=== PATIENT | female | born 1955 | race Caucasian/White ===

== ENCOUNTER 2016-11-21 09:33 | Day surgery (SDC) | payer OTHER ==
[~2016-11-21] VITALS: Ht 134.6 cm; Wt 40.8 kg
[2016-11-21 10:33] VITALS: Ht 134.6 cm; Wt 40.8 kg
[2016-11-21] MEDS ORDERED: ALENDRONATE SODIUM PO (10:50)
[2016-11-21] MEDS ORDERED: ENAL20TA PO (10:50)
[2016-11-21] MEDS ORDERED: ATOR20TA65 PO (10:50)
[2016-11-21] MEDS ORDERED: ACETAMINOPHEN (10:50)
[2016-11-21] MEDS ORDERED: OMEPRAZOLE (10:50)
[2016-11-21] MEDS ORDERED: HYDR12.58 PO (10:50)
[2016-11-21] MEDS ORDERED: CALCIUM PO (10:50)
[2016-11-21 11:16] VITALS: BP 141/83; PULSE 96; RESP 15
[2016-11-21] MEDS ORDERED: MIDAZOLAM 1 MG/ML 2 ML INJ ONE ×3 (11:58)
[2016-11-21] MEDS ORDERED: FENTAnyl 50 MCG/ML VIAL ONE (11:58)
--- NOTE | 2016-11-21 12:04 | GILP ---
DATE OF PROCEDURE: 11/21/2016 PROCEDURE: Esophagogastroduodenoscopy. SURGEON: Gilbert Ferguson MD PREOPERATIVE DIAGNOSIS: A patient presenting with history of chronic heartburn, abdominal discomfor t, dyspepsia. Rule out peptic ulcer disease, gastritis, esophagitis. POSTOPERATIVE DIAGNOSES: 1. Esophagus appeared normal. 2. Erosions were noted in the gastric fundus. 3. Small fundic glands were noted. 4. Patchy gastritis. DESCRIPTION OF PROCEDURE: After the informed written consent was obtained, the patient was asked to lie on the left lateral side. Intravenous anesthesia was given which included 3 mg Versed and 75 m cg of fentanyl. When the patient became somnolent, the Olympus video upper endoscope was introduced into the oropharynx, then into the esophagus. Esophagus appeared to show normal mucosal pattern wi th no esophagitis. Scope at this time was advanced into the stomach. Several areas of erosions wer e noted in the gastric fundus. Several areas of patchy erythema was noted in the gastric mucosa. T wo fundic glands were noted in the mid body of the stomach. Biopsy was done from the antrum, the le sser curvature and the fundus to rule out H. pylori infection. At this time, scope was advanced int o the duodenum. Entire duodenum appeared normal with no mucosal abnormalities. Scope at this time was withdrawn and the procedure was terminated. PLAN: Recommend proton pump inhibitor therapy. Dictated By: GILBERT EDWARDS/YULY Conf#: [id number] DID#: [id number] CC: GILBERT FERGUSON MD; LINH UREÑA MD;*[facility]*
--- NOTE | 2016-11-21 12:10 | GILP ---
DATE OF PROCEDURE: 11/21/2016 PROCEDURE: Colonoscopy. PREOPERATIVE DIAGNOSIS: Rectal bleeding, rule out colorectal neoplasm, arteriovenous malformation, hemorrhoids. POSTOPERATIVE DIAGNOSES: Minimal external hemorrhoids. DESCRIPTION OF PROCEDURE: After informed written consent was obtained, the patient was given 5 mg V ersed and 100 mcg of fentanyl as intravenous anesthesia. When the patient became somnolent, the Olympus video colonoscope was introduced into the rectum and scope was advanced all the way to the cecum. Entire colon appeared perfectly normal with no mucosal abnormality. Endoscope at this time was withdrawn from the cecum. On the way out, the above findi ngs were confirmed. No neoplasm, no colitis were noted. Retroflexion showed no internal hemorrhoid s and when the scope was withdrawn, minimal external hemorrhoids were noted and the procedure was te rminated. PLAN: Recommend Anusol-HC suppositories 1 into the rectum twice a day if the bleeding were to occur . Dictated By: MUKUL CAMARGO MD NC/NTS Conf#: [id number] DID#: [id number] CC: MUKUL CAMARGO MD; Jairo Porras MD;*End*
[2016-11-21 12:30] VITALS: BP 108/58; PULSE 94; RESP 18
== END 2016-11-21 15:39 | disposition home or self-care (01) ==
LOC: GIL 09:33
PROVIDERS: ATTEND Internal Medicine Gastroenterology
DX: K29.30 Chronic superficial gastritis without bleeding (principal); K64.4 Residual hemorrhoidal skin tags; I10 Essential (primary) hypertension
CPT/HCPCS: 43239; 45378; 88305; 88312; J2250; J3010; Z7610

== ENCOUNTER 2017-01-02 16:33 | Emergency (ER) | payer OTHER ==
[~2017-01-02] VITALS: Ht 157.5 cm; Wt 53.0 kg
[~2017-01-02 16:33] MED LIST: ACETAMINOPHEN; ALENDRONATE SODIUM PO; ATOR20TA65 PO; CALCIUM PO; ENAL20TA PO; HYDR12.58 PO; OMEPRAZOLE
[2017-01-02 16:40] VITALS: Ht 157.5 cm; Wt 53.0 kg
--- NOTE | 2017-01-02 18:08 | RADRPT ---
PROCEDURE: XR Right Foot. CLINICAL INDICATION: Trauma. Right foot pain. TECHNIQUE: Three views. Frontal, lateral, and oblique. COMPARISON: None. FINDINGS: There is no fracture or dislocation. The soft tissues are normal. There is a mild hallux valgus. The articular surfaces are intact. There is no lytic or blastic lesion. There is no radiopaque foreign body. IMPRESSION: 1. Mild hallux valgus. 2. Otherwise unremarkable images of the right foot. RPTAT: QQ .Artemio Kirk MD, MD Date Time Electronically viewed and signed by .Artemio Kirk MD, MD on 01/02/2017 18:08 .R/
[2017-01-02] MEDS ORDERED: ACET325T33 PO (18:17)
[2017-01-02 19:00] VITALS: BP 141/76; PULSE 76; RESP 16; TEMP 98.7
--- NOTE | 2017-01-02 23:46 | ERD ---
ER Documentation Chief Complaint Date/Time DATE: 01/02/17 TIME: 23:43 Chief Complaint RIGHT FOOT/TOES PAIN HPI This is a 61-year-old female presenting to the emergency department complaining of right second digit toe pain status post inversion mechanism injury that occurred 3 days ago while she was gardening. Patient states that the pain is moderate in severity. She states that she has an appointment to see her primary care physician tomorrow and would like to get an x-ray to bring to her. Patient states she took Tylenol at 7 PM without much relief. She admits to having restricted range of motion ROS All systems reviewed and are negative except as per history of present illness. Medications Home Meds Active Scripts Acetaminophen* (Tylenol*) 325 Mg Tablet, 2 TAB PO Q6 Y for PAIN AND OR ELEVATED TEMP, #30 TAB Prov:PAM LU PA-C 01/02/17 Reported Medications [Calcium] No Conflict Check, 400 MG PO 11/21/16 Atorvastatin Calcium (Atorvastatin Calcium) 20 Mg Tablet, 20 MG PO QHS, #30 TAB 11/21/16 [Alendronate Sodium] No Conflict Check, 70 MG PO 11/21/16 Enalapril Maleate* (Enalapril Maleate*) 20 Mg Tablet, 20 MG PO DAILY, TAB 11/21/16 Hydrochlorothiazide* (Hydrochlorothiazide*) 12.5 Mg Tablet, 12.5 MG PO DAILY, # 30 TAB 11/21/16 [Acetaminophen] No Conflict Check, 500 MG 11/21/16 [Omeprazole] No Conflict Check 11/21/16 Allergies Allergies: Coded Allergies: No Known Allergy (Unverified , 01/02/17) PMhx/Soc History of Surgery: Yes (EAR SURGERY, LEFTKNEE SURGERY, APPENDECTOMY) Anesthesia Reaction: No Hx Neurological Disorder: No Hx Respiratory Disorders: Yes (BRONCHITIS) Hx Cardiac Disorders: Yes (HYPERTENSION) Hx Psychiatric Problems: No Hx Miscellaneous Medical Probl: Yes (HYPERLIPIDEMIA) Hx Alcohol Use: No Hx Substance Use: No Hx Tobacco Use: No Smoking Status: Never smoker Physical Exam Vitals Vital Signs Date Time Temp Pulse Resp B/P Pulse Ox O2 Delivery O2 Flow Rate FiO2 01/02/17 19:00 98.7 76 16 141/76 100 Room Air 01/02/17 16:40 98.1 95 20 156/77 99 Physical Exam General: WD/WN, in no apparent distress, non-toxic appearing HENT: NC/AT Eyes: Conjunctiva normal Neck: Supple Pulm: Clear to auscultation, normal labored breathing; no wheezing/rales/ rhonchi heard CV: Good capillary refill GI: Non-distended, no guarding Back: No masses Ext: 2nd toe tenderness, no pain in right foot, ankle Neuro: Moves on all fours Skin: intact Psych: Normal mood Procedures/MDM This is a 61-year-old female presenting to the emergency department complaining of right second digit toe pain status post inversion mechanism injury that occurred 3 days ago while she was gardening. This is likely contusion and sprain. No evidence of a fracture dislocation due to physical examination and diagnostic testing. X-rays did not show any evidence of fracture desiccation. She states that she has an appointment to see her primary care physician tomorrow and will bring the diagnostic testing to her physician. Patient is neurovascular intact and her stable for discharge for home with precautions to return to the ER for any worsening symptoms. She understands and agrees with this plan Departure Diagnosis: Primary Impression: Foot pain Condition: Stable Patient Instructions: Sprain Foot Referrals: [facility] (PCP) Additional Instructions: Visite a lacy hartman para un EXAMEN.Regrese a estas instalaciones si no se mejora gabe esperbamos o gabe le dijimos. [place] toda la medicina sabrina y gabe se le indic. Regrese a estas instalaciones si no se mejora gabe esperbamos o gabe le dijimos. PAM LU PA-C January 02, 2017 23:46
== END 2017-01-02 19:01 | disposition home or self-care (01) ==
LOC: FTE 16:33
DX: M79.674 Pain in right toe(s) (principal); I10 Essential (primary) hypertension
CPT/HCPCS: 73630; Z7502

== ENCOUNTER 2018-10-10 06:57 | Inpatient (IN) | payer OTHER ==
[2018-10-10] VITALS (24 sets, daily range): BP systolic 92–178; BP diastolic 48–95; PULSE 86–133; RESP 11–22; Ht 134.6 cm; Wt 43.3 kg
[~2018-10-10] VITALS: Ht 134.6 cm; Wt 43.3 kg
[~2018-10-10 06:57] MED LIST changes: +ACET325T33 PO
[2018-10-10] MEDS ORDERED: CEFAZOLIN 1 GM INJ ONE (07:00)
[2018-10-10] MEDS ORDERED: EPHEDrine SULFATE 50 MG/5 ML SYG ONE (07:00)
[2018-10-10] MEDS ORDERED: SEVOFLURANE 15 MIN ONE (07:00)
[2018-10-10] MEDS ORDERED: PROPOFOL 200 MG INJ ONE (07:00)
[2018-10-10] MEDS ORDERED: BUPIVACAINE 0.5%/EPI (SDV) 30 ML INJ ONE (07:34)
--- NOTE | 2018-10-10 07:46 | PREAC ---
Date/Time of Note Date/Time of Note DATE: 10/10/18 TIME: 07:44 Anesthesia Eval and Record Evaluation Time Pre-Procedure Interview DATE: 10/10/18 TIME: 07:44 Age 63 Sex female NPO: 8 hrs Preoperative diagnosis Lt knee pain Planned procedure Lt knee patella hardware removal Past Medical History Past Medical History: Includes Cardio: HTN, Dyslipidemia GI: GERD Surgery & Anesthesia Issues No known issue Meds Anticoagulation: No Beta John within 24 hr: No Reason Beta John not given: Pt. not on B-John Active Scripts Acetaminophen* (Tylenol*) 325 Mg Tablet, 2 TAB PO Q6 PRN for PAIN AND OR ELEVATED TEMP, #30 TAB Prov:PAM LU PA-C 01/02/17 Reported Medications [Calcium] No Conflict Check, 400 MG PO 11/21/16 Atorvastatin Calcium (Atorvastatin Calcium) 20 Mg Tablet, 20 MG PO QHS, #30 TAB 11/21/16 [Alendronate Sodium] No Conflict Check, 70 MG PO 11/21/16 Enalapril Maleate* (Enalapril Maleate*) 20 Mg Tablet, 20 MG PO DAILY, TAB 11/21/16 Hydrochlorothiazide* (Hydrochlorothiazide*) 12.5 Mg Tablet, 12.5 MG PO DAILY, #30 TAB 11/21/16 [Acetaminophen] No Conflict Check, 500 MG 11/21/16 [Omeprazole] No Conflict Check 11/21/16 Meds reviewed: Yes Allergies Coded Allergies: No Known Allergy (Unverified , 10/10/18) Allergies Reviewed: Yes Labs/Studies Labs Reviewed: Reviewed by anesthesiologist test: Negative Pre-procedure Exam Last vitals Vital Signs Date Temp Pulse Resp B/P (MAP) Pulse Ox O2 O2 Flow FiO2 Time Delivery Rate 10/10/18 98.2 86 18 131/71 100 Room Air 07:14 (91) Airway: Adequate mouth opening, Adequate thyromental dist Mallampati: Mallampati II Teeth: Normal Lung: Normal Heart: Normal ASA Physical Status ASA physical status: 2 Emergency: None Planned Anesthetic General/MAC: LMA Pre-operative Attestations Prior to commencing anesthesia and surgery, the patient was re-evaluated, there was verification of: *The patient's identity *The results of appropriate recent lab work and preoperative vital signs *The above evaluation not changing prior to induction *Anesthetic plan, risk benefits, alternative and complications discussed with patient/family; questions answered; patient/family understands, accepts and wishes to proceed. FLIP LAMB CRNA Oct 10, 2018 07:46
[2018-10-10] MEDS ORDERED: ETOMIDATE 20 MG INJ ONE (07:52)
[2018-10-10] MEDS ORDERED: LIDOCAINE 2% (SDV) 5 ML INJ ONE (07:52)
[2018-10-10] MEDS ORDERED: FENTAnyl 50 MCG/ML VIAL ONE (07:52)
[2018-10-10] MEDS ORDERED: DEXAMETHASONE 4 MG/ML 5 ML INJ ONE (07:53)
[2018-10-10] MEDS ORDERED: PHENYLephrine 10 MG INJ ONE (07:53)
[2018-10-10] MEDS ORDERED: ONDANSETRON 4 MG INJ ONE (08:05)
[2018-10-10] MEDS ORDERED: ONDANSETRON 4 MG INJ IV PRN ×2 (08:30→16:00)
[2018-10-10] MEDS ORDERED: FENTAnyl 50 MCG/ML VIAL IV PRN (08:30)
--- NOTE | 2018-10-10 08:36 | HPN ---
Date/Time of Note Date/Time of Note DATE: 10/10/18 TIME: 08:36 Interval H&P Admission Note Pt. seen H&P reviewed: No system changes KIMBERLY SKAGGS MD Oct 10, 2018 08:36
[2018-10-10] MEDS ORDERED: ROPIVACAINE 0.2% 20 ML VIAL ONE (09:13)
[2018-10-10] MEDS ORDERED: HYDROmorphONE 2 MG/ML SYG ONE (09:15)
[2018-10-10] MEDS ORDERED: POTASSIUM CHLORIDE (SR) 20 MEQ TAB PO STA (12:32)
--- NOTE | 2018-10-10 12:51 | OPPN ---
Date/Time of Note Date/Time of Note DATE: 10/10/18 TIME: 12:46 Event Note 15 min after pt was transferred to same day surgey after recovery in PACU, they called stoke code on her. when i got there in minute pt was awake alert oriented, vital sign stable only HR 105. I was told pt was tachy and complain of numbness in hands, ER doc arrived shortly and examination was nl, good strenght, no sensory deficit, reaction to needle touch and alcoho swab. pt had an anxiety reaction to last anesthesia. Lab ordered, which is nl only Lactae ascid , pt is admitted for overnight observation GER VILLARREAL MD Oct 10, 2018 12:51
--- NOTE | 2018-10-10 13:14 | OPR ---
DATE OF OPERATION: 10/10/2018 PREOPERATIVE DIAGNOSIS: Left knee patellar fracture with retained hardware. POSTOPERATIVE DIAGNOSIS: Left knee patellar fracture with retained hardware. OPERATION PERFORMED: Left knee removal of hardware. SURGEON: Kimberly Skaggs MD EDUCATIONAL SPEECH LANGUAGE CLINICIAN: None. ANESTHESIA: General endotracheal anesthesia with local anesthetic. ESTIMATED BLOOD LOSS: Minimal. INDICATIONS FOR PROCEDURE: Ms. Leias Thompson is a 63-year-old female who previously had a patellar fr acture repair with a cerclage wire. She says the wire has now become prominent and has been irritati ng her seizure, presents for removal of the wire. Risks and benefits were discussed. Informed conse nt was obtained. DESCRIPTION OF PROCEDURE: The patient's correct extremity was identified in the preoperative area. She was brought back to the operating room where she had general endotracheal anesthesia. The left l ower extremity was prepped and draped in the standard sterile manner. Preop antibiotics were adminis tered. Timeout was performed. I then made a small incision overlying the patella. I did subcutaneo us dissection was able to find the area where the wire was cerclaged. I then cut the wire and then e asily removed it. X-rays confirmed that all the metal was removed. I then turned my attention to cl osure, obtained adequate hemostasis, the wound was closed with the skin being closed with 3-0 Mon[place] l. Dry sterile dressing was applied. The patient was extubated and transported to recovery in sta e condition. Dictated By: KIMBERLY SKAGGS MD, RA/YULY Conf#: [id number] DID#: [id number]
--- NOTE | 2018-10-10 14:19 | PAC ---
Date/Time of Note Date/Time of Note DATE: 10/10/18 TIME: 14:18 Post-Anesthesia Notes Post-Anesthesia Note Last documented vital signs Vital Signs Date Temp Pulse Resp B/P (MAP) Pulse Ox O2 O2 Flow FiO2 Time Delivery Rate 10/10/18 98.0 100 15 154/71 100 12:44 10/10/18 14 165/73 100 Room Air 12:15 (103) 10/10/18 98.0 11:23 Activity: WNL Respiratory function: WNL Cardiovascular function: WNL Mental status: Baseline Pain reasonably controlled: Yes Hydration appropriate: Yes Nausea/Vomiting absent: No GER VILLARREAL MD Oct 10, 2018 14:19
[2018-10-10] MEDS: SOD CHLORIDE 0.9% 1,000 ML IV SCH ×2 (15:05→23:50)
[2018-10-10] MEDS: CEFTRIAXONE 1 GM/50 ML (PMX) 50 ML IVPB SCH (15:06)
[2018-10-10] MEDS ORDERED: ENALAPRIL 20 MG TAB PO SCH (16:00)
[2018-10-10] MEDS: HYDROCHLOROTHIAZIDE 12.5 MG CAP PO SCH (16:15)
[2018-10-10] MEDS ORDERED: ONDANSETRON 4 MG INJ IV STA (17:00)
[2018-10-10] MEDS ORDERED: METOCLOPRAMIDE 10 MG INJ IV PRN (17:00)
[2018-10-10] MEDS: PANTOPRAZOLE 40 MG INJ IV SCH (17:35)
[2018-10-10] MEDS ORDERED: hydrALAzine 20 MG INJ IV PRN (18:00)
--- NOTE | 2018-10-10 23:53 | HP ---
DATE OF ADMISSION: 10/10/2018 CHIEF COMPLAINT AND HISTORY OF PRESENT ILLNESS: History is obtained from medical record and also fro m patient. Charlene GARVIN on the 6th floor helped mainly in interpretation. The patient is a 63-year-old female with a history of hypertension who sustained a fall leading to left patellar fracture. The p atient had a repair with a wire. The patient was being followed by Dr. Hatfield as an outpatient an d because of discomfort from the wire becoming superficial and irritating her skin, the patient was a dmitted for removal of retained hardware. The patient postoperatively developed multiple episodes of vomiting and also had tachycardia. The patient's lactic acid level was 3.7, which I repeated after 6 hours and still 2.3. The patient was empirically started on IV Rocephin after sending UA and C and S. The patient remains awake and alert and did not have any chest pain or shortness of breath. The patient did not have any abdominal pain. The patient did have nausea and had multiple episodes of v omiting. The patient did not have any headache, no reported dizziness, no report of any focal weakne ss. The patient, prior to elective surgery, did not have any systemic symptom of infection and was i n her usual state of health. The patient does not have any leg edema. No previous history of claudi cation. No hematemesis. No reported melena since admission. The patient is being admitted for furt her evaluation and management. PAST MEDICAL HISTORY: As stated above. ALLERGIES: NONE. SOCIAL HISTORY: No smoking or alcohol. FAMILY HISTORY: Noncontributory. MEDICATIONS PRIOR TO ADMISSION: Vasotec and hydrochlorothiazide. PHYSICAL EXAMINATION: GENERAL: The patient is awake, alert, and fairly oriented. VITAL SIGNS: At the time of my examination, temperature 98, pulse 104, respirations 20, blood pressu re 166/81, O2 saturation 97% on room air. HEENT: No eye discharge or redness. Conjunctivae are normal. Oropharynx clear. NECK: Supple, no mass, no thyromegaly. CHEST: Fairly clear. No use of accessory muscles. CARDIOVASCULAR: S1, S2 normal. Sinus tachycardia. ABDOMEN: Soft, nontender. Bowel sounds plus. EXTREMITIES: No ankle edema. Pedal pulses palpable. Chris wrap present on the left knee. NEUROLOGIC: The patient is awake, alert, and fairly oriented with no obvious gross focal deficit, al though exam was limited on the left lower extremity due to recent surgery. LABORATORY DATA: This morning, WBC 10.8. Repeat lab: WBC went up to 12.8, hemoglobin 11.8, platele t 344. Sodium 136, potassium 3.8, BUN 12, creatinine 0.5, glucose 175. The lactate has been declini ng. In the morning, it was 3.7. Now, it is down to 2.3. IMPRESSION AND PLAN: Sepsis, unknown etiology. Urine culture and blood culture have been ordered. We will also obtain chest x-ray, echocardiogram, and serial troponin. We will use SCD for DVT prophy laxis. The patient does not have any chest pain, shortness of breath, or hypoxemia. We will also st art her on IV Protonix and symptomatic treatment for nausea and vomiting. The patient will be monito red on telemetry. We will repeat CBC, CMP, and lactic acid level in the morning. Further recommenda tion will depend on patient's hospital course. Meanwhile, the patient will also be started on IV flu ids. We will obtain infectious disease consult from Dr. Dominguez's group. Further recommendation will depend on patient's hospital course. Dictated By: MEDINA NICOLE MD AB/NTS Conf#: [id number] DID#: [id number] CC: KIMBERLY HATFIELD MD;*End*
[2018-10-11] VITALS (9 sets, daily range): BP systolic 97–138; BP diastolic 53–71; PULSE 83–115; RESP 17–19
[2018-10-11] MEDS: HYDROCHLOROTHIAZIDE 12.5 MG CAP PO SCH (06:00)
[2018-10-11] MEDS: PANTOPRAZOLE 40 MG INJ IV SCH (06:12)
[2018-10-11] MEDS ORDERED: IOHEXOL 100 ML ONE (08:24)
[2018-10-11] MEDS ORDERED: SOD CHLORIDE 0.9% 100 ML ONE (08:24)
[2018-10-11] MEDS ORDERED: ENOXAPARIN 40 MG/0.4 ML SYG SC ONE (09:00)
[2018-10-11] MEDS: ASPIRIN (EC) 325 MG TAB PO SCH (09:03)
[2018-10-11] MEDS: SOD CHLORIDE 0.9% 1,000 ML IV SCH (09:20)
[2018-10-11] MEDS: NS + KCL 20 MEQ 1,000 ML IV SCH (12:14)
[2018-10-11] MEDS: CEFTRIAXONE 1 GM/50 ML (PMX) 50 ML IVPB SCH (13:22)
--- NOTE | 2018-10-11 13:45 | PN ---
Date/Time of Note Date/Time of Note DATE: 10/11/18 TIME: 13:42 Assessment/Plan Lines/Catheters IV Catheter Type (from Nrs): Peripheral IV Bustos in Place (from Nrsg): No Assessment/Plan Assessment/Plan s/p Left Patella Hardware Removal Has postop elevated troponins, awaiting input from cardiology Presently she is pain free in her knee,wound looks really good Elevated WBC, ? post op leukocytosis Encourage ambulation Subjective 24 Hr Interval Summary No complaints. Ambulated earlier today. Exam/Review of Systems Vital Signs Vitals Vital Signs Date Temp Pulse Resp B/P (MAP) Pulse Ox O2 O2 Flow FiO2 Time Delivery Rate 10/11/18 115 13:06 10/11/18 98.8 17 124/66 99 11:30 (85) 10/11/18 Room Air 04:00 Intake and Output 10/10/18 10/10/18 10/11/18 1515:00 23:00 07:00 IntakeIntake Total 1100 ml 1110 ml 600 ml OutputOutput Total 2 ml BalanceBalance 1098 ml 1110 ml 600 ml Exam Free Text/Dictation Left LE: Inc c/d/i No erythema Calf soft and nontender Results Result Diagram: 10/11/18 0531 10/11/18 1101 KIMBERLY SKAGGS MD Oct 11, 2018 13:45
--- NOTE | 2018-10-11 14:37 | CONS ---
Consultation Date/Type/Reason Admit Date/Time Oct 10, 2018 at 13:06 Type of Consult Cardiology Date/Time of Note DATE: 10/11/18 TIME: 14:35 Hx of Present Illness ^$ yo with post op elevated troponis - etiology unclear, not consistent with ACS - pain free - will add BB, follow CK-MD/troponin - if stable, consider outpt stress test. Past Medical History Home Meds Active Scripts Acetaminophen* (Tylenol*) 325 Mg Tablet, 2 TAB PO Q6 PRN for PAIN AND OR ELEVATED TEMP, #30 TAB Prov:PAM LU PA-C 01/02/17 Reported Medications [Calcium] No Conflict Check, 400 MG PO 11/21/16 Atorvastatin Calcium (Atorvastatin Calcium) 20 Mg Tablet, 20 MG PO QHS, #30 TAB 11/21/16 [Alendronate Sodium] No Conflict Check, 70 MG PO 11/21/16 Enalapril Maleate* (Enalapril Maleate*) 20 Mg Tablet, 20 MG PO DAILY, TAB 11/21/16 Hydrochlorothiazide* (Hydrochlorothiazide*) 12.5 Mg Tablet, 12.5 MG PO DAILY, #30 TAB 11/21/16 [Acetaminophen] No Conflict Check, 500 MG 11/21/16 [Omeprazole] No Conflict Check 11/21/16 Medications Current Medications Ceftriaxone Sodium 50 ml @ 100 mls/hr Q24H IVPB Last administered on 10/11/18at 13:22; Admin Dose 100 MLS/HR; Start 10/10/18 at 13:30 Ondansetron HCl (Zofran Inj) 4 mg Q4H PRN IV NAUSEA AND/OR VOMITING Last administered on 10/10/18at 16:16; Admin Dose 4 MG; Start 10/10/18 at 16:00 Metoclopramide HCl (Reglan) 10 mg Q6H PRN IV VOMITTING; Start 10/10/18 at 17:00 Pantoprazole (Protonix Iv) 40 mg BID@06,18 IV Last administered on 10/11/18at 06:12; Admin Dose 40 MG; Start 10/10/18 at 18:00 Hydralazine HCl (Apresoline) 20 mg Q4H PRN IV high blood pressure Last administered on 10/10/18at 17:48; Admin Dose 20 MG; Start 10/10/18 at 18:00 Aspirin (Ecotrin) 325 mg DAILY PO Last administered on 10/11/18at 09:03; Admin Dose 325 MG; Start 10/11/18 at 09:00 Potassium Chloride/Sodium Chloride 1,000 ml @ 75 mls/hr [id number] IV Last administered on 10/11/18at 12:14; Admin Dose 75 MLS/HR; Start 10/11/18 at 11:00 Docusate Sodium (Colace) 200 mg BID PO ; Start 10/11/18 at 21:00 Allergies: Coded Allergies: No Known Allergy (Unverified , 10/10/18) Social History Smoking Status: Never smoker Exam/Review of Systems Vital Signs Vitals Vital Signs Date Temp Pulse Resp B/P (MAP) Pulse Ox O2 O2 Flow FiO2 Time Delivery Rate 10/11/18 115 13:06 10/11/18 98.8 17 124/66 99 11:30 (85) 10/11/18 Room Air 04:00 Intake and Output 10/10/18 10/10/18 10/11/18 1515:00 23:00 07:00 IntakeIntake Total 1100 ml 1110 ml 600 ml OutputOutput Total 2 ml BalanceBalance 1098 ml 1110 ml 600 ml Labs Result Diagram: 10/11/18 0531 10/11/18 1101 Results 24hrs Laboratory Tests Test 10/10/18 16:49 10/10/18 19:30 10/11/18 00:40 10/11/18 05:31 Lactic Acid Level 3.0 *H 2.3 *H 1.1 White Blood Count 12.8 H 14.7 H Red Blood Count 4.54 4.06 L Hemoglobin 11.8 L 10.6 L Hematocrit 37.2 33.3 L Mean Corpuscular 81.9 L 82.0 Volume Mean Corpuscular 26.0 L 26.1 L Hemoglobin Mean Corpuscular 31.7 L 31.8 L Hemoglobin Concent Red Cell 13.2 13.5 Distribution Width Platelet Count 344 295 Mean Platelet Volume 10.2 10.2 Immature 0.600 H 0.400 Granulocytes % Neutrophils % 94.5 H 80.7 H Lymphocytes % 3.8 L 10.6 L Monocytes % 0.9 8.2 Eosinophils % 0.0 0.0 Basophils % 0.2 0.1 Nucleated Red Blood 0.0 0.0 Cells % Immature 0.080 H 0.060 H Granulocytes # Neutrophils # 12.1 H 11.9 H Lymphocytes # 0.5 L 1.6 Monocytes # 0.1 L 1.2 H Eosinophils # 0.0 0.0 Basophils # 0.0 0.0 Nucleated Red Blood 0.0 0.0 Cells # Sodium Level 136 Potassium Level 3.8 Chloride Level 105 Carbon Dioxide Level 21 Anion Gap 10 Blood Urea Nitrogen 12 Creatinine 0.51 Est Glomerular > 60 Filtrat Rate mL/min Glucose Level 175 Calcium Level 8.6 Troponin I < 0.012 0.176 *H 0.544 *H Thyroid Stimulating 0.278 L Hormone (TSH) Free Thyroxine 1.41 Test 10/11/18 09:00 10/11/18 10:59 10/11/18 11:01 10/11/18 13:25 Urine Color COLORLESS Urine Clarity CLEAR Urine pH 7.0 Urine Specific 1.003 [place] Urine Ketones NEGATIVE Urine Nitrite NEGATIVE Urine Bilirubin NEGATIVE Urine Urobilinogen NEGATIVE Urine Leukocyte NEGATIVE Esterase Urine Hemoglobin NEGATIVE Urine Glucose NEGATIVE Urine Total Protein NEGATIVE Troponin I 0.583 *H Sodium Level 140 Potassium Level 4.5 Chloride Level 110 Carbon Dioxide Level 24 Anion Gap 6 Blood Urea Nitrogen 12 Creatinine 0.69 Est Glomerular > 60 Filtrat Rate mL/min Glucose Level 97 # Calcium Level 8.4 Total Bilirubin 0.0 L Direct Bilirubin 0.00 Indirect Bilirubin 0.0 Aspartate Amino 33 Transf (AST/SGOT) Alanine 26 Aminotransferase (AL T/SGPT) Alkaline Phosphatase 48 Total Protein 6.4 Albumin 3.6 Globulin 2.80 Albumin/Globulin 1.28 Ratio D-Dimer 393.46 D-Dimer Comment Medications Medications Current Medications Ceftriaxone Sodium 50 ml @ 100 mls/hr Q24H IVPB Last administered on 10/11/18at 13:22; Admin Dose 100 MLS/HR; Start 10/10/18 at 13:30 Ondansetron HCl (Zofran Inj) 4 mg Q4H PRN IV NAUSEA AND/OR VOMITING Last administered on 10/10/18at 16:16; Admin Dose 4 MG; Start 10/10/18 at 16:00 Metoclopramide HCl (Reglan) 10 mg Q6H PRN IV VOMITTING; Start 10/10/18 at 17:00 Pantoprazole (Protonix Iv) 40 mg BID@06,18 IV Last administered on 10/11/18at 06:12; Admin Dose 40 MG; Start 10/10/18 at 18:00 Hydralazine HCl (Apresoline) 20 mg Q4H PRN IV high blood pressure Last administered on 10/10/18at 17:48; Admin Dose 20 MG; Start 10/10/18 at 18:00 Aspirin (Ecotrin) 325 mg DAILY PO Last administered on 10/11/18at 09:03; Admin Dose 325 MG; Start 10/11/18 at 09:00 Potassium Chloride/Sodium Chloride 1,000 ml @ 75 mls/hr [id number] IV Last administered on 10/11/18at 12:14; Admin Dose 75 MLS/HR; Start 10/11/18 at 11:00 Docusate Sodium (Colace) 200 mg BID PO ; Start 10/11/18 at 21:00 COLLIN HOWARD MD Oct 11, 2018 14:37
[2018-10-11] MEDS: DOCUSATE SODIUM 100 MG CAP PO SCH ×2 (15:58→22:30)
--- NOTE | 2018-10-11 16:11 | PN ---
DATE: 10/11/2018 SUBJECTIVE/INTERVAL HISTORY: Troponin came back positive, peaked at 0.5 early this morning and [facility] troponin is pending. Free T4 was normal. TSH was slightly low. The patient did not have any vo miting today. Denies any chest pain or shortness of breath. Tachycardia has improved. Last heart r ate is 101. The patient still has marginal blood pressure. No orthopnea. No abdominal pain. PHYSICAL EXAMINATION: GENERAL: The patient is awake, alert, fairly oriented. VITAL SIGNS: Temperature 98.6, pulse 101, respirations 17, blood pressure 110/55, O2 sat on room air HEENT: Unremarkable. NECK: No mass. CHEST: Fairly clear. CARDIOVASCULAR: S1, S2 normal. ABDOMEN: Soft, nontender, nondistended. EXTREMITIES: No ankle edema. Pedal pulses palpable. SKIN: Without acute rash. NEUROLOGIC: The patient is awake, alert, fairly oriented. LABORATORY DATA: Last troponin 0.54, lactic acid is down to 1.1. White count up today at 14.7. Chemistry pending. IMPRESSION: 1. Status post hardware removal from left patella, history of patellar fracture. Continue postop ca re as per Dr. Skaggs. 2. Sepsis, unclear etiology. Continue empiric IV Rocephin. Urine and blood cultures are pending. Chest x-ray did not reveal any infiltrate. ID consult from Dr. Murdock is pending. 3. Positive troponin, possible non-ST elevation myocardial infarction versus demand ischemia. The p atient was started on aspirin and was also given one therapeutic dose of Lovenox last night. I have requested Dr. Skaggs to give us okay for further use of Lovenox. The patient was also supposed to undergo CT pulmonary angiogram to rule out PE or aspiration pneumonia due to multiple vomiting in pe rioperative period. The patient, however, refused it. Will obtain venous Doppler and D-dimer. 4. History of hypertension. Will continue to hold Vasotec and hydrochlorothiazide due to marginal b lood pressure. Will also request lipid panel. Dictated By: MEDINA NICOLE MD AB/NTS Conf#: [id number] DID#: [id number] CC: KIMBERLY SKAGGS MD;*EndCC*
[2018-10-11] MEDS ORDERED: BISACODYL (EC) 5 MG TAB PO PRN (16:30)
[2018-10-11] MEDS: AL HYDROX/MG HYDROX/SIMETH 30 ML CUP PO PRN (17:40)
--- NOTE | 2018-10-11 19:29 | CONS ---
DATE OF ADMISSION: 10/10/2018 DATE OF CONSULTATION: 10/11/2018 REFERRING PHYSICIAN: Medina Nicole MD REASON FOR EVALUATION: Elevated troponins. HISTORY OF PRESENT ILLNESS: Ms. Thompson is a pleasant 63-year-old woman with history of hypertension, who presented for evaluation of left patellar fracture surgery. She has been followed by Dr. Rubio cerda as an outpatient and was admitted for elective surgery for hardware replacement. After the surge ry, the patient was feeling fine, but she became bacteremic for unclear cause according to the notes. Also, the patient had elevated troponins and I have been asked to see the patient in consultation. I reviewed the patient's data carefully. It appears that she does not have any known history of cor onary artery disease. To my evaluation, the patient was in sinus tachycardia at times. Her EKG show ed sinus rhythm with some nonspecific ST-T changes with inferior T-wave, but is nondiagnostic for acu te myocardial infarction. The patient's troponin, however, did come back elevated at 0.5. The etiol ogy is not completely clear. I do not have a CK-MB and CK total available. For now, she is chest pa in free. If her presentation is not really consistent with acute myocardial infarction, I think for now, conservative therapy is expected. The patient ought to be in consideration of an outpatient str ess test if system was urged. PAST MEDICAL HISTORY: 1. Hypertension. 2. History of knee derangement as described. 3. History of mild anxiety. ALLERGIES: NO KNOWN ALLERGIES. SOCIAL HISTORY: The patient does not smoke, does not drink and does not use any drugs. FAMILY HISTORY: She has some diabetes but no premature coronary artery disease. MEDICATIONS: 1. Colace 100 mg p.o. b.i.d. 2. Aspirin 325 mg once a day. 3. Pantoprazole. 4. Hydralazine. 5. Ondansetron and I am going to see if she can tolerate a small dose of beta nupur. REVIEW OF SYSTEMS: CONSTITUTIONAL: No fevers, no chills. Knee pain as described. HEENT: No changes in vision or hearing. CARDIAC: Chest pain free now, and she does not report having any chest pain. RESPIRATORY: No shortness of breath. GASTROINTESTINAL: No nausea, vomiting, diarrhea or constipation. GENITOURINARY: No dysuria or hematuria. NEUROLOGIC: No focal neurologic deficits. HEMATOLOGIC: No easy bruising. PSYCHIATRIC: No history of psychiatric illness. PHYSICAL EXAMINATION: VITAL SIGNS: Temperature is 98.8, heart rate is 159 and blood pressure is 124/66. GENERAL: She is thin woman in no acute distress, alert and oriented x3, in Panamanian, aware of her con dition. HEAD: Normocephalic, atraumatic. EYES: Anicteric. NECK: Supple. JVD 6 cm. No lymphadenopathy. No thyromegaly. HEART: Regular. Soft holosystolic murmur. PMI is minimally displaced. There is no S3. LUNGS: Coarse at the base. ABDOMEN: Distended. Bowel sounds are present. There is no hepatosplenomegaly. GENITOURINARY: Showed intact. EXTREMITIES: Showed no clubbing or cyanosis. Trace edema. She has a bandage in the left knee. LABORATORY DATA: Sodium 140 and potassium 4.5. Her BUN is 12 and creatinine is 0.69. Troponin is e levated at 0.54, going to 0.53. I do not have CK-MB available for my evaluation. White blood cell 4 .7 and hemoglobin is 10.6 with platelets of 295. ASSESSMENT AND PLAN: 1. Elevated troponins. Etiology of elevated troponins is still unclear. We will then obtain anothe r set of troponins and CK-MB and CK total and follow the patient expectantly. We will monitor clinic ally now. 2. Anemia. Hemoglobin of 12.0 to 10.6. There is no obvious bleeding right now, possibly with some degree of dilution. We will monitor. Defer to surgical team. 3. Postoperative. Continue postop care. 4. Infection. The patient is on antibiotics. Continue antibiotic therapy. 5. Tachycardia. The patient's tachycardia is a sinus tachycardia in nature. I think it might not b e unreasonable to try for her a small dose of beta nupur. I would like to thank Dr. Nicole for referring this patient for my evaluation. Dictated By: COLLIN HOWARD MD ML/NTS Conf#: [id number] DID#: [id number] CC: MEDINA NICOLE MD;*EndCC*
[2018-10-11] MEDS ORDERED: DOCUSATE SODIUM 100 MG CAP PO SCH (21:00)
[2018-10-11] MEDS ORDERED: VANCOMYCIN IV PER PHARMACY XX SCH (21:30)
[2018-10-11] MEDS ORDERED: VANCOMYCIN 750 MG (PMX) 250 ML IVPB ONE (22:00)
--- NOTE | 2018-10-11 22:01 | CONS ---
Assessment/Plan Assessment/Plan Hospital Course (Demo Recall) - sepsis, probably due to phlebitis of R wrist on which Pt had an IV catheter before (it was removed) vs. SIRS from the hardware removal - s/p hardware removal from L knee on 10/10/2018 - h/o Fx of L patella s/p repair - s/p post-op nausea and emesis, probable manifestation of sepsis, improved - post-op tachycardia and increased troponin levels, probably secondary to sepsis vs. SIRS recommendations - ordered: blood cultures x2 and lactic acid now and venou doppler of LE to r/o phlebitis - then start IV vancomycin for phlebitis (10/11/2018-) - if urine culture does not grow Gram negative bacteria, ceftriaxone may be discontinued - wound care of L knee management d/w Pt and her RN Tono Consultation Date/Type/Reason Admit Date/Time Oct 10, 2018 at 13:06 Date of Consultation: Oct 11, 2018 Type of Consult ID Reason for Consultation sepsis Requesting Provider: MEDINA EVERETT MD Date/Time of Note DATE: 10/11/18 TIME: 21:40 Hx of Present Illness This is a 63 yo female with h/o Fx of L patella s/p repair. The wire surfaced and irritated the skin. As a result, Pt underwent removal of the hardware on 10/10/2018. Post op, Pt developed tachycardia, nausea and emesis. Lactic acid was elevated 3.7, 3, 2.3 on 10/10/2018 and today 1.1. Her lab is also significant for WBC 10.8 pre-op, 12.8 post op and today 14.7. Her troponin also started to increase overnight to 0.559 this afternoon. Pt was started on empiric ceftriaxone. Urinalysis was within normal limits. CARLEE of b/l LE showed no e/o DVT and her CXR pre-op showed mild atelectasis. Subjectively, Pt denies N&V, fever, chills, cough, dyspnea. Pt c/o pain and swelling of R wrist on which Pt had an IV catheter previously. The pain in her L knee is moderate. It pulsates. Dr. Everett requested ID consultation on this Pt. Constitutional: no complaints Eyes: no complaints ENT: no complaints Respiratory: no complaints Cardiovascular: edema (R wrst) Gastrointestinal: nausea (on 10/10/2018), vomiting (on 10/10/2018) Genitourinary: no complaints Musculoskeletal: bone/joint pain (L knee, moderate, pain in pulsation), restricted range of motion Skin: no complaints Neurologic: no complaints Past Medical History Medical History: hypertension Home Meds Active Scripts Acetaminophen* (Tylenol*) 325 Mg Tablet, 2 TAB PO Q6 PRN for PAIN AND OR ELEVATED TEMP, #30 TAB Prov:PAM LU PA-C 01/02/17 Reported Medications [Calcium] No Conflict Check, 400 MG PO 11/21/16 Atorvastatin Calcium (Atorvastatin Calcium) 20 Mg Tablet, 20 MG PO QHS, #30 TAB 11/21/16 [Alendronate Sodium] No Conflict Check, 70 MG PO 11/21/16 Enalapril Maleate* (Enalapril Maleate*) 20 Mg Tablet, 20 MG PO DAILY, TAB 11/21/16 Hydrochlorothiazide* (Hydrochlorothiazide*) 12.5 Mg Tablet, 12.5 MG PO DAILY, #30 TAB 11/21/16 [Acetaminophen] No Conflict Check, 500 MG 11/21/16 [Omeprazole] No Conflict Check 11/21/16 Medications Current Medications Ceftriaxone Sodium 50 ml @ 100 mls/hr Q24H IVPB Last administered on 10/11/18at 13:22; Admin Dose 100 MLS/HR; Start 10/10/18 at 13:30 Ondansetron HCl (Zofran Inj) 4 mg Q4H PRN IV NAUSEA AND/OR VOMITING Last administered on 10/10/18at 16:16; Admin Dose 4 MG; Start 10/10/18 at 16:00 Metoclopramide HCl (Reglan) 10 mg Q6H PRN IV VOMITTING; Start 10/10/18 at 17:00 Hydralazine HCl (Apresoline) 20 mg Q4H PRN IV high blood pressure Last administered on 10/10/18at 17:48; Admin Dose 20 MG; Start 10/10/18 at 18:00 Aspirin (Ecotrin) 325 mg DAILY PO Last administered on 10/11/18at 09:03; Admin Dose 325 MG; Start 10/11/18 at 09:00 Potassium Chloride/Sodium Chloride 1,000 ml @ 75 mls/hr [id number] IV Last administered on 10/11/18at 12:14; Admin Dose 75 MLS/HR; Start 10/11/18 at 11:00 Carvedilol (Coreg) 6.25 mg BID PO ; Start 10/11/18 at 21:00 Docusate Sodium (Colace) 200 mg BID PO Last administered on 10/11/18at 15:58; Admin Dose 200 MG; Start 10/11/18 at 16:00 Al Hydrox/Mg Hydrox/Simethicone (Mag-Al Plus) 30 ml Q6H PRN PO GASTROINTESTINAL UPSET Last administered on 10/11/18at 17:40; Admin Dose 30 ML; Start 10/11/18 at 16:30 Bisacodyl (Dulcolax) 10 mg DAILY PRN PO CONSTIPATION Last administered on 10/11/18at 17:41; Admin Dose 10 MG; Start 10/11/18 at 16:30 Pantoprazole (Protonix Tab) 40 mg DAILY@06 PO ; Start 10/12/18 at 06:00 Vancomycin HCl (Vanco Iv Per Pharmacy) VANCOMYCIN PER PHARMACY PER PROTOCOL XX ; Start 10/11/18 at 21:30 Vancomycin/Sodium Chloride 250 ml @ 125 mls/hr ONCE ONCE IVPB ; Start 10/11/18 at 22:00; Stop 10/11/18 at 23:59 Vancomycin HCl 100 ml @ 100 mls/hr Q24H IVPB ; Start 10/12/18 at 22:00 Allergies: Coded Allergies: No Known Allergy (Unverified , 10/10/18) Past Surgical History Past Surgical Hx: other (per HPI) Social History Alcohol Use: none Smoking Status: Never smoker Drug Use: none Exam/Review of Systems Exam Vitals Vital Signs Date Temp Pulse Resp B/P (MAP) Pulse Ox O2 O2 Flow FiO2 Time Delivery Rate 10/11/18 83 20:00 10/11/18 98.5 19 138/71 96 20:00 (93) 10/11/18 Room Air 04:00 Intake and Output 10/10/18 10/10/18 10/11/18 1515:00 23:00 07:00 IntakeIntake Total 1100 ml 1110 ml 600 ml OutputOutput Total 2 ml BalanceBalance 1098 ml 1110 ml 600 ml Constitutional: alert, frail Psych: no complaints, nl mood/affect Head: normocephalic, atraumatic Eyes: nl conjunctiva, nl lids, nl sclera ENMT: nl external ears & nose, nl nasal mucosa & septum, mucosa pink and moist Neck: supple Respiratory: clear to auscultation, normal air movement Cardiovascular: regular rate and rhythm, nl pulses, edema (R wrist and hand) Gastrointestinal: soft, non-tender; No distended, No tender Musculoskeletal: swelling (mild swelling of L knee with midline incision. Clean, non-purulent and non-erythematous) Extremities: edema (R hand and wrist) Neurological: PASSENGER SCREENER II-XII intact, nl mental status, nl speech, nl strength Skin: nl turgor, rash or lesions (mild erythema of R wrist) Results Result Diagram: 10/11/18 0531 10/11/18 1101 Results 24hrs Laboratory Tests Test 10/11/18 00:40 10/11/18 05:31 10/11/18 09:00 10/11/18 10:59 Troponin I 0.176 *H 0.544 *H 0.583 *H White Blood Count 14.7 H Red Blood Count 4.06 L Hemoglobin 10.6 L Hematocrit 33.3 L Mean Corpuscular 82.0 Volume Mean Corpuscular 26.1 L Hemoglobin Mean Corpuscular 31.8 L Hemoglobin Concent Red Cell 13.5 Distribution Width Platelet Count 295 Mean Platelet Volume 10.2 Immature 0.400 Granulocytes % Neutrophils % 80.7 H Lymphocytes % 10.6 L Monocytes % 8.2 Eosinophils % 0.0 Basophils % 0.1 Nucleated Red Blood 0.0 Cells % Immature 0.060 H Granulocytes # Neutrophils # 11.9 H Lymphocytes # 1.6 Monocytes # 1.2 H Eosinophils # 0.0 Basophils # 0.0 Nucleated Red Blood 0.0 Cells # Lactic Acid Level 1.1 Thyroid Stimulating 0.278 L Hormone (TSH) Free Thyroxine 1.41 Urine Color COLORLESS Urine Clarity CLEAR Urine pH 7.0 Urine Specific 1.003 Crozier Urine Ketones NEGATIVE Urine Nitrite NEGATIVE Urine Bilirubin NEGATIVE Urine Urobilinogen NEGATIVE Urine Leukocyte NEGATIVE Esterase Urine Hemoglobin NEGATIVE Urine Glucose NEGATIVE Urine Total Protein NEGATIVE Test 10/11/18 11:01 10/11/18 13:25 10/11/18 15:13 Sodium Level 140 Potassium Level 4.5 Chloride Level 110 Carbon Dioxide Level 24 Anion Gap 6 Blood Urea Nitrogen 12 Creatinine 0.69 Est Glomerular > 60 Filtrat Rate mL/min Glucose Level 97 # Calcium Level 8.4 Total Bilirubin 0.0 L Direct Bilirubin 0.00 Indirect Bilirubin 0.0 Aspartate Amino 33 Transf (AST/SGOT) Alanine 26 Aminotransferase (AL T/SGPT) Alkaline Phosphatase 48 Total Protein 6.4 Albumin 3.6 Globulin 2.80 Albumin/Globulin 1.28 Ratio D-Dimer 414.98 D-Dimer Comment Creatine Kinase 202 H Creatine Kinase 1.8 Index Creatinine Kinase MB 3.71 H (Mass) Troponin I 0.559 *H Medications Medication Current Medications Ceftriaxone Sodium 50 ml @ 100 mls/hr Q24H IVPB Last administered on 10/11/18 13:22; Admin Dose 100 MLS/HR; Start 10/10/18 at 13:30 Ondansetron HCl (Zofran Inj) 4 mg Q4H PRN IV NAUSEA AND/OR VOMITING Last administered on 10/10/18at 16:16; Admin Dose 4 MG; Start 10/10/18 at 16:00 Metoclopramide HCl (Reglan) 10 mg Q6H PRN IV VOMITTING; Start 10/10/18 at 17:00 Hydralazine HCl (Apresoline) 20 mg Q4H PRN IV high blood pressure Last administered on 10/10/18 17:48; Admin Dose 20 MG; Start 10/10/18 at 18:00 Aspirin (Ecotrin) 325 mg DAILY PO Last administered on 10/11/18 09:03; Admin Dose 325 MG; Start 10/11/18 at 09:00 Potassium Chloride/Sodium Chloride 1,000 ml @ 75 mls/hr [id number] IV Last administered on 10/11/18at 12:14; Admin Dose 75 MLS/HR; Start 10/11/18 at 11:00 Carvedilol (Coreg) 6.25 mg BID PO ; Start 10/11/18 at 21:00 Docusate Sodium (Colace) 200 mg BID PO Last administered on 10/11/18at 15:58; Admin Dose 200 MG; Start 10/11/18 at 16:00 Al Hydrox/Mg Hydrox/Simethicone (Mag-Al Plus) 30 ml Q6H PRN PO GASTROINTESTINAL UPSET Last administered on 10/11/18at 17:40; Admin Dose 30 ML; Start 10/11/18 at 16:30 Bisacodyl (Dulcolax) 10 mg DAILY PRN PO CONSTIPATION Last administered on 10/11/18at 17:41; Admin Dose 10 MG; Start 10/11/18 at 16:30 Pantoprazole (Protonix Tab) 40 mg DAILY@06 PO ; Start 10/12/18 at 06:00 Vancomycin HCl (Vanco Iv Per Pharmacy) VANCOMYCIN PER PHARMACY PER PROTOCOL XX ; Start 10/11/18 at 21:30 Vancomycin/Sodium Chloride 250 ml @ 125 mls/hr ONCE ONCE IVPB ; Start 10/11/18 at 22:00; Stop 10/11/18 at 23:59 Vancomycin HCl 100 ml @ 100 mls/hr Q24H IVPB ; Start 10/12/18 at 22:00 MAYUR ACEVEDO M.D. Oct 11, 2018 21:51
[2018-10-12] VITALS (10 sets, daily range): BP systolic 128–153; BP diastolic 63–83; PULSE 74–99; RESP 18–20
[2018-10-12] MEDS: NS + KCL 20 MEQ 1,000 ML IV SCH ×3 (00:20→16:21)
[2018-10-12] MEDS: PANTOPRAZOLE (EC) 40 MG TAB PO SCH (05:36)
[2018-10-12] MEDS: ASPIRIN (EC) 325 MG TAB PO SCH (08:25)
[2018-10-12] MEDS: DOCUSATE SODIUM 100 MG CAP PO SCH ×2 (08:25→21:00)
--- NOTE | 2018-10-12 11:23 | PN ---
Date/Time of Note Date/Time of Note DATE: 10/12/18 TIME: 11:21 Assessment/Plan VTE Prophylaxis Risk score (from Ns)>0 risk: 6 SCD applied (from Nsg): Yes Lines/Catheters IV Catheter Type (from Nrs): Peripheral IV Urinary Cath still in place: No Assessment/Plan Assessment/Plan 1. Status post hardware removal from left patella, history of patellar fracture. Continue postop care as per Dr. Hatfield. 2. Sepsis, unclear etiology. - per ID - Chest x-ray did not reveal any infiltrate. 3. Positive troponin, possible non-ST elevation myocardial infarction versus demand ischemia - CT pulmonary angiogram to rule out PE or aspiration pneumonia -- pt refused - Doppler and D-dimer 4. History of hypertension. Will continue to hold Vasotec and hydrochlorothiazide due to marginal blood pressure. Result Diagram: 10/12/18 0509 10/12/18 0509 Results 24hrs Laboratory Tests Test 10/11/18 13:25 10/11/18 15:13 10/11/18 22:31 10/12/18 04:30 D-Dimer 414.98 D-Dimer Comment Creatine Kinase 202 H Creatine Kinase 1.8 Index Creatinine Kinase MB 3.71 H (Mass) Troponin I 0.559 *H Lactic Acid Level 1.2 Stool Occult Blood NEGATIVE Test 10/12/18 05:09 White Blood Count 10.2 # Red Blood Count 4.23 Hemoglobin 11.0 L Hematocrit 35.3 L Mean Corpuscular 83.5 Volume Mean Corpuscular 26.0 L Hemoglobin Mean Corpuscular 31.2 L Hemoglobin Concent Red Cell 14.1 Distribution Width Platelet Count 316 Mean Platelet Volume 10.4 Immature 0.400 Granulocytes % Neutrophils % 75.0 Lymphocytes % 16.8 Monocytes % 7.0 Eosinophils % 0.3 Basophils % 0.5 Nucleated Red Blood 0.0 Cells % Immature 0.040 H Granulocytes # Neutrophils # 7.7 H Lymphocytes # 1.7 Monocytes # 0.7 Eosinophils # 0.0 Basophils # 0.1 Nucleated Red Blood 0.0 Cells # Sodium Level 143 Potassium Level 4.4 Chloride Level 107 Carbon Dioxide Level 27 Anion Gap 9 Blood Urea Nitrogen 10 Creatinine 0.62 Est Glomerular > 60 Filtrat Rate mL/min Glucose Level 93 Calcium Level 8.5 Triglycerides Level 87 Cholesterol Level 159 LDL Cholesterol, 78 Calculated HDL Cholesterol 64 Cholesterol/HDL 2.4 Ratio Exam/Review of Systems Exam Vitals Vital Signs Date Temp Pulse Resp B/P (MAP) Pulse Ox O2 O2 Flow FiO2 Time Delivery Rate 10/12/18 83 08:13 10/12/18 98.2 19 150/77 97 07:16 (101) 10/11/18 Room Air 04:00 Intake and Output 10/11/18 10/11/18 10/12/18 1515:00 23:00 07:00 IntakeIntake Total 50 ml 600 ml 250 ml BalanceBalance 50 ml 600 ml 250 ml Results Results 24hrs Laboratory Tests Test 10/11/18 13:25 10/11/18 15:13 10/11/18 22:31 10/12/18 04:30 D-Dimer 414.98 D-Dimer Comment Creatine Kinase 202 H Creatine Kinase 1.8 Index Creatinine Kinase MB 3.71 H (Mass) Troponin I 0.559 *H Lactic Acid Level 1.2 Stool Occult Blood NEGATIVE Test 10/12/18 05:09 White Blood Count 10.2 # Red Blood Count 4.23 Hemoglobin 11.0 L Hematocrit 35.3 L Mean Corpuscular 83.5 Volume Mean Corpuscular 26.0 L Hemoglobin Mean Corpuscular 31.2 L Hemoglobin Concent Red Cell 14.1 Distribution Width Platelet Count 316 Mean Platelet Volume 10.4 Immature 0.400 Granulocytes % Neutrophils % 75.0 Lymphocytes % 16.8 Monocytes % 7.0 Eosinophils % 0.3 Basophils % 0.5 Nucleated Red Blood 0.0 Cells % Immature 0.040 H Granulocytes # Neutrophils # 7.7 H Lymphocytes # 1.7 Monocytes # 0.7 Eosinophils # 0.0 Basophils # 0.1 Nucleated Red Blood 0.0 Cells # Sodium Level 143 Potassium Level 4.4 Chloride Level 107 Carbon Dioxide Level 27 Anion Gap 9 Blood Urea Nitrogen 10 Creatinine 0.62 Est Glomerular > 60 Filtrat Rate mL/min Glucose Level 93 Calcium Level 8.5 Triglycerides Level 87 Cholesterol Level 159 LDL Cholesterol, 78 Calculated HDL Cholesterol 64 Cholesterol/HDL 2.4 Ratio Medications Medication Current Medications Ceftriaxone Sodium 50 ml @ 100 mls/hr Q24H IVPB Last administered on 10/11/18at 13:22; Admin Dose 100 MLS/HR; Start 10/10/18 at 13:30 Ondansetron HCl (Zofran Inj) 4 mg Q4H PRN IV NAUSEA AND/OR VOMITING Last administered on 10/10/18 16:16; Admin Dose 4 MG; Start 10/10/18 at 16:00 Metoclopramide HCl (Reglan) 10 mg Q6H PRN IV VOMITTING; Start 10/10/18 at 17:00 Hydralazine HCl (Apresoline) 20 mg Q4H PRN IV high blood pressure Last administered on 10/10/18at 17:48; Admin Dose 20 MG; Start 10/10/18 at 18:00 Aspirin (Ecotrin) 325 mg DAILY PO Last administered on 10/12/18 08:25; Admin Dose 325 MG; Start 10/11/18 at 09:00 Potassium Chloride/Sodium Chloride 1,000 ml @ 40 mls/hr Q24H IV Last administered on 10/12/18at 02:19; Admin Dose 75 MLS/HR; Start 10/11/18 at 11:00 Carvedilol (Coreg) 6.25 mg BID PO Last administered on 10/11/18at 22:31; Admin Dose 6.25 MG; Start 10/11/18 at 21:00 Docusate Sodium (Colace) 200 mg BID PO Last administered on 10/12/18at 08:25; Admin Dose 200 MG; Start 10/11/18 at 16:00 Al Hydrox/Mg Hydrox/Simethicone (Mag-Al Plus) 30 ml Q6H PRN PO GASTROINTESTINAL UPSET Last administered on 10/11/18at 17:40; Admin Dose 30 ML; Start 10/11/18 at 16:30 Bisacodyl (Dulcolax) 10 mg DAILY PRN PO CONSTIPATION Last administered on 10/11/18at 17:41; Admin Dose 10 MG; Start 10/11/18 at 16:30 Pantoprazole (Protonix Tab) 40 mg DAILY@06 PO Last administered on 10/12/18at 05:36; Admin Dose 40 MG; Start 10/12/18 at 06:00 Vancomycin HCl (Vanco Iv Per Pharmacy) VANCOMYCIN PER PHARMACY PER PROTOCOL XX ; Start 10/11/18 at 21:30 Vancomycin HCl 100 ml @ 100 mls/hr Q24H IVPB ; Start 10/12/18 at 22:00 Enoxaparin Sodium (Lovenox) 40 mg QAM SC ; Start 10/12/18 at 11:00 SHMUEL MORAN Oct 12, 2018 11:23
[2018-10-12] MEDS: ENOXAPARIN 40 MG/0.4 ML SYG SC SCH (11:47)
--- NOTE | 2018-10-12 13:55 | CONS ---
Consult Date/Type/Reason Admit Date/Time Oct 10, 2018 at 13:06 Initial Consult Date 10/11/18 Requesting Provider: MEDINA NICOLE MD Date/Time of Note DATE: 10/12/18 TIME: 13:53 Subjective NO acute events - still with positive troponin and CK-MB - reasonable to consider stress test. ROS: No fever, no chills, no nausea, no vomiting, no diarrhea/constipation No recent weight changes No chest pain, no PND, no orthopnea - mild SOB No dizziness, blurred vision No thirst, no heat or cold intolerance Objective Vitals Vital Signs Date Temp Pulse Resp B/P (MAP) Pulse Ox O2 O2 Flow FiO2 Time Delivery Rate 10/12/18 87 12:09 10/12/18 98.1 18 143/79 96 11:55 (100) 10/11/18 Room Air 04:00 Intake and Output 10/11/18 10/11/18 10/12/18 1515:00 23:00 07:00 IntakeIntake Total 50 ml 600 ml 250 ml BalanceBalance 50 ml 600 ml 250 ml Exam General: WN/WD/NAD, AOx 3 HEENT: Unicetric/atraumatic/EOMI ( follows commands) NECK: JVD elevated, no thyromegaly Lymph: no lymphadenopathy HEART: regular with no S3, II/ systolic murmur at apex LUNGS: Coarse sounds ABD: soft, NT, ND, +BS : Intact Neuro: non focal SKIN: chronic changes EXT: trace edema, post op Results/Medications Result Diagram: 10/12/18 0509 10/12/18 0509 Results 24 hrs Laboratory Tests Test 10/11/18 15:13 10/11/18 22:31 10/12/18 04:30 10/12/18 05:09 Creatine Kinase 202 H Creatine Kinase 1.8 Index Creatinine Kinase MB 3.71 H (Mass) Troponin I 0.559 *H Lactic Acid Level 1.2 Stool Occult Blood NEGATIVE White Blood Count 10.2 # Red Blood Count 4.23 Hemoglobin 11.0 L Hematocrit 35.3 L Mean Corpuscular 83.5 Volume Mean Corpuscular 26.0 L Hemoglobin Mean Corpuscular 31.2 L Hemoglobin Concent Red Cell 14.1 Distribution Width Platelet Count 316 Mean Platelet Volume 10.4 Immature 0.400 Granulocytes % Neutrophils % 75.0 Lymphocytes % 16.8 Monocytes % 7.0 Eosinophils % 0.3 Basophils % 0.5 Nucleated Red Blood 0.0 Cells % Immature 0.040 H Granulocytes # Neutrophils # 7.7 H Lymphocytes # 1.7 Monocytes # 0.7 Eosinophils # 0.0 Basophils # 0.1 Nucleated Red Blood 0.0 Cells # Sodium Level 143 Potassium Level 4.4 Chloride Level 107 Carbon Dioxide Level 27 Anion Gap 9 Blood Urea Nitrogen 10 Creatinine 0.62 Est Glomerular > 60 Filtrat Rate mL/min Glucose Level 93 Calcium Level 8.5 Triglycerides Level 87 Cholesterol Level 159 LDL Cholesterol, 78 Calculated HDL Cholesterol 64 Cholesterol/HDL 2.4 Ratio Home Meds Active Scripts Acetaminophen* (Tylenol*) 325 Mg Tablet, 2 TAB PO Q6 PRN for PAIN AND OR ELEVATED TEMP, #30 TAB Prov:PAM LU PA-C 01/02/17 Reported Medications [Calcium] No Conflict Check, 400 MG PO 11/21/16 Atorvastatin Calcium (Atorvastatin Calcium) 20 Mg Tablet, 20 MG PO QHS, #30 TAB 11/21/16 [Alendronate Sodium] No Conflict Check, 70 MG PO 11/21/16 Enalapril Maleate* (Enalapril Maleate*) 20 Mg Tablet, 20 MG PO DAILY, TAB 11/21/16 Hydrochlorothiazide* (Hydrochlorothiazide*) 12.5 Mg Tablet, 12.5 MG PO DAILY, #30 TAB 11/21/16 [Acetaminophen] No Conflict Check, 500 MG 11/21/16 [Omeprazole] No Conflict Check 11/21/16 Medications Current Medications Ceftriaxone Sodium 50 ml @ 100 mls/hr Q24H IVPB Last administered on 10/11/18at 13:22; Admin Dose 100 MLS/HR; Start 10/10/18 at 13:30 Ondansetron HCl (Zofran Inj) 4 mg Q4H PRN IV NAUSEA AND/OR VOMITING Last administered on 10/10/18at 16:16; Admin Dose 4 MG; Start 10/10/18 at 16:00 Metoclopramide HCl (Reglan) 10 mg Q6H PRN IV VOMITTING; Start 10/10/18 at 17:00 Hydralazine HCl (Apresoline) 20 mg Q4H PRN IV high blood pressure Last administered on 10/10/18at 17:48; Admin Dose 20 MG; Start 10/10/18 at 18:00 Aspirin (Ecotrin) 325 mg DAILY PO Last administered on 10/12/18 08:25; Admin Dose 325 MG; Start 10/11/18 at 09:00 Potassium Chloride/Sodium Chloride 1,000 ml @ 40 mls/hr Q24H IV Last administered on 10/12/18 02:19; Admin Dose 75 MLS/HR; Start 10/11/18 at 11:00 Carvedilol (Coreg) 6.25 mg BID PO Last administered on 10/11/18 22:31; Admin Dose 6.25 MG; Start 10/11/18 at 21:00 Docusate Sodium (Colace) 200 mg BID PO Last administered on 10/12/18 08:25; Admin Dose 200 MG; Start 10/11/18 at 16:00 Al Hydrox/Mg Hydrox/Simethicone (Mag-Al Plus) 30 ml Q6H PRN PO GASTROINTESTINAL UPSET Last administered on 10/11/18at 17:40; Admin Dose 30 ML; Start 10/11/18 at 16:30 Bisacodyl (Dulcolax) 10 mg DAILY PRN PO CONSTIPATION Last administered on 10/11/18at 17:41; Admin Dose 10 MG; Start 10/11/18 at 16:30 Pantoprazole (Protonix Tab) 40 mg DAILY@06 PO Last administered on 10/12/18at 05:36; Admin Dose 40 MG; Start 10/12/18 at 06:00 Vancomycin HCl (Vanco Iv Per Pharmacy) VANCOMYCIN PER PHARMACY PER PROTOCOL XX ; Start 10/11/18 at 21:30 Vancomycin HCl 100 ml @ 100 mls/hr Q24H IVPB ; Start 10/12/18 at 22:00 Enoxaparin Sodium (Lovenox) 40 mg QAM SC Last administered on 10/12/18at 11:47; Admin Dose 40 MG; Start 10/12/18 at 11:00 Assessment/Plan Hospital Course (Demo Recall) 1. Elevated troponins. Etiology of elevated troponins is still unclear. We will then obtain another set of troponins and CK-MB and CK total and follow the patient expectantly. We will monitor clinically now - CK MB+ - will restratify with stress test. 2. Anemia. Hemoglobin of 12.0 to 10.6. There is no obvious bleeding right now, possibly with some degree of dilution. We will monitor. Defer to surgical team. H/H stable now. 3. Postoperative. Continue postop care. 4. Infection. The patient is on antibiotics. Continue antibiotic therapy. Treated. 5. Tachycardia. The patient's tachycardia is a sinus tachycardia in nature. I think it might not be unreasonable to try for her a small dose of beta nupur. COLLIN HOWARD MD Oct 12, 2018 13:55
[2018-10-12] MEDS: CEFTRIAXONE 1 GM/50 ML (PMX) 50 ML IVPB SCH (14:09)
[2018-10-12] MEDS: AL HYDROX/MG HYDROX/SIMETH 30 ML CUP PO PRN (16:16)
--- NOTE | 2018-10-12 21:40 | CONS ---
Assessment/Plan Assessment/Plan Hospital Course (Demo Recall) - sepsis, probably due to phlebitis of R wrist on which Pt had an IV catheter before vs. SIRS from the hardware removal - phlebitis of R wrist on which Pt had an IV catheter before (it was removed), resolving. doppler CARLEE of RUE was negative for phlebitis or DVT - s/p hardware removal from L knee on 10/10/2018 - h/o Fx of L patella s/p repair - s/p post-op nausea and emesis, probable manifestation of sepsis, improved - post-op tachycardia and increased troponin levels, probably secondary to sepsis vs. SIRS. Pt declined the cardiac stress test recommendations - pending results: blood cultures x2 - continue IV vancomycin for phlebitis (10/11/2018-), plan to discontinue is she is stable and if her WBC level is still within normal limit - will d/c ceftriaxone - wound care of L knee management d/w Pt and her RN Tono Consultation Date/Type/Reason Admit Date/Time Oct 10, 2018 at 13:06 Initial Consult Date 10/11/18 Type of Consult ID Requesting Provider: MEDINA NICOLE MD Date/Time of Note DATE: 10/12/18 TIME: 21:31 24 HR Interval Summary Free Text/Dictation Pt declined the cardiac stress test Constitutional: improved Detailed Summary Eyes: no complaints ENT: no complaints Respiratory: no complaints Cardiovascular: no complaints Gastrointestinal: other ("upset stomach"); No diarrhea, No nausea Genitourinary: no complaints Musculoskeletal: bone/joint pain (nearly no pain of L knee) Skin: no complaints Neurologic: no complaints Exam/Review of Systems Exam Vitals Vital Signs Date Temp Pulse Resp B/P (MAP) Pulse Ox O2 O2 Flow FiO2 Time Delivery Rate 10/12/18 76 20:00 10/12/18 98.1 19 128/63 97 20:00 (84) 10/11/18 Room Air 04:00 Intake and Output 10/11/18 10/11/18 10/12/18 1515:00 23:00 07:00 IntakeIntake Total 50 ml 600 ml 250 ml BalanceBalance 50 ml 600 ml 250 ml Constitutional: alert, oriented, well developed Psych: no complaints, nl mood/affect Head: normocephalic, atraumatic Eyes: nl conjunctiva, EOMI, nl lids ENMT: nl external ears & nose, nl lips & teeth, nl nasal mucosa & septum Neck: other (not swollen) Respiratory: clear to auscultation, normal air movement Cardiovascular: regular rate and rhythm, nl pulses Gastrointestinal: soft, non-tender, bowel sounds; No distended Musculoskeletal: other (L knee has well healed scar with minimal swelling, dressed) Extremities: normal pulses; No edema Neurological: BEER BREWER II-XII intact, nl mental status, nl speech, nl strength Skin: nl turgor; No rash or lesions Results Result Diagram: 10/12/18 0509 10/12/18 0509 Results 24hrs Laboratory Tests Test 10/11/18 22:31 10/12/18 04:30 10/12/18 05:09 Lactic Acid Level 1.2 Stool Occult Blood NEGATIVE White Blood Count 10.2 # Red Blood Count 4.23 Hemoglobin 11.0 L Hematocrit 35.3 L Mean Corpuscular Volume 83.5 Mean Corpuscular Hemoglobin 26.0 L Mean Corpuscular Hemoglobin Concent 31.2 L Red Cell Distribution Width 14.1 Platelet Count 316 Mean Platelet Volume 10.4 Immature Granulocytes % 0.400 Neutrophils % 75.0 Lymphocytes % 16.8 Monocytes % 7.0 Eosinophils % 0.3 Basophils % 0.5 Nucleated Red Blood Cells % 0.0 Immature Granulocytes # 0.040 H Neutrophils # 7.7 H Lymphocytes # 1.7 Monocytes # 0.7 Eosinophils # 0.0 Basophils # 0.1 Nucleated Red Blood Cells # 0.0 Sodium Level 143 Potassium Level 4.4 Chloride Level 107 Carbon Dioxide Level 27 Anion Gap 9 Blood Urea Nitrogen 10 Creatinine 0.62 Est Glomerular Filtrat Rate mL/min > 60 Glucose Level 93 Calcium Level 8.5 Triglycerides Level 87 Cholesterol Level 159 LDL Cholesterol, Calculated 78 HDL Cholesterol 64 Cholesterol/HDL Ratio 2.4 Medications Medication Current Medications Ondansetron HCl (Zofran Inj) 4 mg Q4H PRN IV NAUSEA AND/OR VOMITING Last adm inistered on 10/10/18at 16:16; Admin Dose 4 MG; Start 10/10/18 at 16:00 Metoclopramide HCl (Reglan) 10 mg Q6H PRN IV VOMITTING; Start 10/10/18 at 17:00 Hydralazine HCl (Apresoline) 20 mg Q4H PRN IV high blood pressure Last administered on 10/10/18 17:48; Admin Dose 20 MG; Start 10/10/18 at 18:00 Aspirin (Ecotrin) 325 mg DAILY PO Last administered on 10/12/18 08:25; Admin Dose 325 MG; Start 10/11/18 at 09:00 Carvedilol (Coreg) 6.25 mg BID PO Last administered on 10/12/18 21:26; Admin Dose 6.25 MG; Start 10/11/18 at 21:00 Docusate Sodium (Colace) 200 mg BID PO Last administered on 10/12/18 08:25; Admin Dose 200 MG; Start 10/11/18 at 16:00 Al Hydrox/Mg Hydrox/Simethicone (Mag-Al Plus) 30 ml Q6H PRN PO GASTROINTESTINAL UPSET Last administered on 10/12/18 16:16; Admin Dose 30 ML; Start 10/11/18 at 16:30 Bisacodyl (Dulcolax) 10 mg DAILY PRN PO CONSTIPATION Last administered on 17:41; Admin Dose 10 MG; Start 10/11/18 at 16:30 Pantoprazole (Protonix Tab) 40 mg DAILY@06 PO Last administered on 10/12/18 05:36; Admin Dose 40 MG; Start 10/12/18 at 06:00 Vancomycin HCl (Vanco Iv Per Pharmacy) VANCOMYCIN PER PHARMACY PER PROTOCOL XX ; Start 10/11/18 at 21:30 Vancomycin HCl 100 ml @ 100 mls/hr Q24H IVPB Last administered on 10/12/18 21:15; Admin Dose 100 MLS/HR; Start 10/12/18 at 22:00 Enoxaparin Sodium (Lovenox) 40 mg QAM SC Last administered on 10/12/18 11:47; Admin Dose 40 MG; Start 10/12/18 at 11:00 MAYUR ACEVEDO M.D. Oct 12, 2018 21:40
[2018-10-12] MEDS ORDERED: VANCOMYCIN 500 MG (PMX) 100 ML IVPB SCH (22:00)
[2018-10-13] VITALS (10 sets, daily range): BP systolic 102–136; BP diastolic 54–76; PULSE 73–94; RESP 16–19
[2018-10-13] MEDS: PANTOPRAZOLE (EC) 40 MG TAB PO SCH (06:13)
[2018-10-13] MEDS: ASPIRIN (EC) 325 MG TAB PO SCH (08:32)
[2018-10-13] MEDS: DOCUSATE SODIUM 100 MG CAP PO SCH ×2 (08:32→20:37)
[2018-10-13] MEDS: ENOXAPARIN 40 MG/0.4 ML SYG SC SCH (08:34)
--- NOTE | 2018-10-13 09:47 | CONS ---
[facility] HCIS Consult Follow-up Patient Name: Leisa Thompson Unit Number: [id number] Date of : 1955 Patient Status: Admitted Inpatient Attending Doctor: Medina Nicole MD Edit: MAYUR MURDOCK M.D. on 10/18/18 @ 22:13 Mathieu: I discussed the management with CHEESE PACKER Kerry and agree Assessment/Plan Assessment/Plan Hospital Course (Demo Recall) - Sepsis, probably due to phlebitis of R wrist on which Pt had an IV catheter before vs. SIRS from the hardware removal - Phlebitis of R wrist on which Pt had an IV catheter before (it was removed), resolving. doppler CARLEE of RUE was negative for phlebitis or DVT - S/p hardware removal from L knee on 10/10/2018 - H/o Fx of L patella s/p repair - S/p post-op nausea and emesis, probable manifestation of sepsis, improved - Post-op tachycardia and increased troponin levels, probably secondary to sepsis vs. SIRS. Pt declined the cardiac stress test Recommendations: - Pending results: blood cultures x2 (NGTD) - D/c Vanco - Monitor off antibiotics - F/u Echo - Wound care of L knee Management d/w patient, and with Dr. Murdock Thank you Consultation Date/Type/Reason Admit Date/Time Oct 10, 2018 at 13:06 Initial Consult Date 10/11/18 Type of Consult ID Requesting Provider: MEDINA NICOLE MD Date/Time of Note DATE: 10/13/18 TIME: 09:42 24 HR Interval Summary Free Text/Dictation The patient denies all ROS. She does report that she has "hot flashes" after eating. She states she was experiencing them d/t the antibiotics, and that it has been better since one antibiotic was discontinued yesterday. She asks if she can go home soon. She has remained afebrile and no acute issues were reported by nursing. Exam/Review of Systems Exam Vitals Vital Signs Date Temp Pulse Resp B/P (MAP) Pulse Ox O2 O2 Flow FiO2 Time Delivery Rate 10/13/18 84 08:01 10/13/18 98.2 16 125/68 98 Room Air 07:49 (87) Intake and Output 10/12/18 10/12/18 10/13/18 1515:00 23:00 07:00 IntakeIntake Total 50 ml 600 ml 500 ml BalanceBalance 50 ml 600 ml 500 ml Allergies Coded Allergies No Known Allergy (Unverified10/10/18) Constitutional: alert, oriented, well developed, other ([facility]) Psych: no complaints, nl mood/affect Head: normocephalic, atraumatic Eyes: nl conjunctiva, EOMI, nl lids ENMT: nl external ears & nose, nl lips & teeth, nl nasal mucosa & septum, mucosa pink and moist (no thrush) Neck: supple, non-tender (not swollen) Respiratory: clear to auscultation, normal air movement Cardiovascular: regular rate and rhythm, nl pulses Gastrointestinal: soft, non-tender, bowel sounds (normoactive ) Musculoskeletal: other (L knee well healed scar with minimal swelling. ) Extremities: normal pulses; No edema Neurological: COLORS CUSTODIAN II-XII intact, nl mental status, nl speech, nl strength, other (Mainly irish speaking) Skin: nl turgor; No rash or lesions Results Result Diagram: 10/12/18 0509 10/12/18 0509 Imaging Imaging RUE Venous Study 10/12/18 IMPRESSION: 1. No evidence of a deep vein thrombosis involving the right upper extremity. US Lower Ext Venous Study 10/11/18 IMPRESSION: No sonographic evidence for deep venous thrombosis. Medications Medication Current Medications Ondansetron HCl (Zofran Inj) 4 mg Q4H PRN IV NAUSEA AND/OR VOMITING Last administered on 10/10/18at 16:16; Admin Dose 4 MG; Start 10/10/18 at 16:00 Metoclopramide HCl (Reglan) 10 mg Q6H PRN IV VOMITTING; Start 10/10/18 at 17:00 Hydralazine HCl (Apresoline) 20 mg Q4H PRN IV high blood pressure Last administered on 10/10/18 17:48; Admin Dose 20 MG; Start 10/10/18 at 18:00 Aspirin (Ecotrin) 325 mg DAILY PO Last administered on 10/13/18 08:32; Admin Dose 325 MG; Start 10/11/18 at 09:00 Carvedilol (Coreg) 6.25 mg BID PO Last administered on 10/13/18 08:33; Admin Dose 6.25 MG; Start 10/11/18 at 21:00 Docusate Sodium (Colace) 200 mg BID PO Last administered on 10/13/18 08:32; Admin Dose 200 MG; Start 10/11/18 at 16:00 Al Hydrox/Mg Hydrox/Simethicone (Mag-Al Plus) 30 ml Q6H PRN PO GASTROINTESTINAL UPSET Last administered on 10/12/18 16:16; Admin Dose 30 ML; Start 10/11/18 at 16:30 Bisacodyl (Dulcolax) 10 mg DAILY PRN PO CONSTIPATION Last administered on 10/11/18 17:41; Admin Dose 10 MG; Start 10/11/18 at 16:30 Pantoprazole (Protonix Tab) 40 mg DAILY@06 PO Last administered on 10/13/18 06:13; Admin Dose 40 MG; Start 10/12/18 at 06:00 Vancomycin HCl (Vanco Iv Per Pharmacy) VANCOMYCIN PER PHARMACY PER PROTOCOL XX ; Start 10/11/18 at 21:30 Vancomycin HCl 100 ml @ 100 mls/hr Q24H IVPB Last administered on 10/12/18 21:15; Admin Dose 100 MLS/HR; Start 10/12/18 at 22:00 Enoxaparin Sodium (Lovenox) 40 mg QAM SC Last administered on 10/13/18 08:34; Admin Dose 40 MG; Start 10/12/18 at 11:00 ALLY MONIQUE NP Oct 13, 2018 09:47
--- NOTE | 2018-10-13 11:53 | CONS ---
Assessment/Plan Assessment/Plan Hospital Course (Demo Recall) IMP: 1.Positive Troponin-minimal uptrend. NO CP/SOB 2.HTN 3.[id number] now improved 4.Post-op s/p knee surgery REcc: -Tele -Contineu coreg -Contineu asa -check echo -Patient refused lexiscan -Contineu abx's and f/u cx data Consultation Date/Type/Reason Admit Date/Time Oct 10, 2018 at 13:06 Initial Consult Date 10/11/18 Type of Consult Cardiology Reason for Consultation positive troponin Requesting Provider: MEDINA NICOLE MD Date/Time of Note DATE: 10/13/18 TIME: 11:50 Exam/Review of Systems Vital Signs Vitals Vital Signs Date Temp Pulse Resp B/P (MAP) Pulse Ox O2 O2 Flow FiO2 Time Delivery Rate 10/13/18 98.3 89 16 105/70 98 Room Air 11:21 (82) Intake and Output 10/12/18 10/12/18 10/13/18 1515:00 23:00 07:00 IntakeIntake Total 50 ml 600 ml 500 ml BalanceBalance 50 ml 600 ml 500 ml Exam Exam Review of Systems: CONSTITUTIONAL: No fevers, chills. PULMONARY: No sob CARDIOVASCULAR: No chest pain/palpitations GASTROINTESTINAL: No nausea/vomiting. GENITOURINARY: No hematuria/dysuria. MUSCULOSKELETAL: No myagias/arthalgias. PSYCHIATRIC: The patient denies depression. NEUROLOGIC: No weakness Constitutional: alert Psych: no complaints Head: normocephalic ENMT: mucosa pink and moist Neck: supple, jvd (9 cm water) Respiratory: diminished breath sounds Cardiovascular: regular rate and rhythm Gastrointestinal: soft, non-tender Musculoskeletal: muscle tone (normal) Extremities: edema (none) Neurological: other (No focal deficits) Labs Result Diagram: 10/12/18 0509 10/12/18 0509 Medications Medications Current Medications Ondansetron HCl (Zofran Inj) 4 mg Q4H PRN IV NAUSEA AND/OR VOMITING Last administered on 10/10/18at 16:16; Admin Dose 4 MG; Start 10/10/18 at 16:00 Metoclopramide HCl (Reglan) 10 mg Q6H PRN IV VOMITTING; Start 10/10/18 at 17:00 Hydralazine HCl (Apresoline) 20 mg Q4H PRN IV high blood pressure Last administered on 10/10/18 17:48; Admin Dose 20 MG; Start 10/10/18 at 18:00 Aspirin (Ecotrin) 325 mg DAILY PO Last administered on 10/13/18 08:32; Admin Dose 325 MG; Start 10/11/18 at 09:00 Carvedilol (Coreg) 6.25 mg BID PO Last administered on 10/13/18 08:33; Admin Dose 6.25 MG; Start 10/11/18 at 21:00 Docusate Sodium (Colace) 200 mg BID PO Last administered on 10/13/18 08:32; Admin Dose 200 MG; Start 10/11/18 at 16:00 Al Hydrox/Mg Hydrox/Simethicone (Mag-Al Plus) 30 ml Q6H PRN PO GASTROINTESTINAL UPSET Last administered on 10/12/18 16:16; Admin Dose 30 ML; Start 10/11/18 at 16:30 Bisacodyl (Dulcolax) 10 mg DAILY PRN PO CONSTIPATION Last administered on 10/11/18 17:41; Admin Dose 10 MG; Start 10/11/18 at 16:30 Pantoprazole (Protonix Tab) 40 mg DAILY@06 PO Last administered on 10/13/18 06:13; Admin Dose 40 MG; Start 10/12/18 at 06:00 Vancomycin HCl (Vanco Iv Per Pharmacy) VANCOMYCIN PER PHARMACY PER PROTOCOL XX ; Start 10/11/18 at 21:30 Vancomycin HCl 100 ml @ 100 mls/hr Q24H IVPB Last administered on 10/12/18 21:15; Admin Dose 100 MLS/HR; Start 10/12/18 at 22:00 Enoxaparin Sodium (Lovenox) 40 mg QAM SC Last administered on 10/13/18 08:34; Admin Dose 40 MG; Start 10/12/18 at 11:00 BRENDA MARINELLI Oct 13, 2018 11:53
--- NOTE | 2018-10-13 17:24 | RADRPT ---
Echocardiogram Report Patient Name: Valery CAROLINA ID: [id number] : 1955 (63y 7m)Study Date: 10/11/2018 9:36:20 AM Gender: FAccession #: [id number] Tech: [facility] [place] Location: Ref.Physician: MEDINA NICOLE Height(Cm): BSA: Weight(Kg): Quality: AdequateAccount #: Procedures: Echocardiographic Report: Transthoracic echocardiogram with complete 2D, M-Mode, and doppler examination. Indications: Tachycardia. Measurements: 2D/M Mode Doppler Measurement Value Normal Range Measurement Value Normal Range LVIDd 2D 4.6 [ 3.8 - 5.2 ] cm AV Peak Kahlil 1.5 [ 100.0 - 170.0 ] cm/sec LVIDs 2D 3.0 [ 2.2 - 3.5 ] cm AV Peak PG 9.0 [ 2.0 - 9.0 ] mmHg LVPWd 2D 0.6 [ 0.6 - 0.9 ] cm LVOT Peak Kahlil 0.7 [ 70.0 - 110.0 ] cm/sec IVSd 2D 0.6 [ 0.6 - 0.9 ] cm LVOT Peak PG 2.0 [ 2.0 - 6.0 ] mmHg AoR Diam 2D 2.6 [ 2.3 - 3.1 ] cm Lat E` Kahlil 0.1 [ 10.0 - 15.0 ] cm/sec EDV 2D 95.4 [ 46.0 - 106.0 ] ml Med E` Kahlil 0.1 cm/sec ESV 2D 34.7 [ 14.0 - 42.0 ] ml PV Peak Kahlil 1.1 [ 40.0 - 80.0 ] cm/sec EF 2D 63.6 [ 54.0 - 74.0 ] percent PV Peak PG 5.0 mmHg LA Dimen 2D 3.1 [ 2.7 - 3.8 ] cm Findings: Left Ventricle: Normal left ventricular cavity size. Normal left ventricular wall thickness. Mild left ventricular systolic dysfunction. Ejection fraction is visually estimated at 45-50 %. Tissue Doppler/Mitral Doppler indices are most likely consistent with impaired relaxation (Stage I diastolic dysfunction), patient mild tachy rate. These segments of the LV are hypokinetic inferior base segment and inferoseptum mid segment. Right Ventricle: Normal right ventricular size. Normal right ventricular systolic function. Left Atrium: The left atrium is normal in size. Right Atrium: The right atrium is normal in size. Atrial Septum: Normal atrial septum. Mitral Valve: Normal appearance of the mitral valve. Mild mitral valve regurgitation. Aortic Valve: Normal appearance of the aortic valve. No significant aortic stenosis or insufficiency. Tricuspid Valve: Normal appearance and function of the tricuspid valve with trace physiologic regurgitation. Normal right ventricular systolic pressure. Pulmonic Valve: Normal pulmonic valve appearance. There is trace pulmonic regurgitation. Pericardium: Normal pericardium with no significant pericardial effusion. Aorta: Normal aortic root. IVC: Normal size and normal respiratory collapse consistent with normal right atrial pressure. Pulmonary Artery: Normal pulmonary artery size. Conclusions: Normal left ventricular cavity size. Normal left ventricular wall thickness. Mild left ventricular systolic dysfunction. Ejection fraction is visually estimated at 45-50 %. Tissue Doppler/Mitral Doppler indices are most likely consistent with impaired relaxation (Stage I diastolic dysfunction), patient mild tachy rate. These segments of the LV are hypokinetic inferior base segment and inferoseptum mid segment. Normal appearance of the mitral valve. Mild mitral valve regurgitation. n. Normal appearance and function of the tricuspid valve with trace physiologic regurgitation. Normal right ventricular systolic pressure. Normal pulmonic valve appearance. There is trace pulmonic regurgitation. n. Electronically Signed By: Emiliano Ashraf 2018-10-13 17:23:21 PST
--- NOTE | 2018-10-13 18:27 | PN ---
Date/Time of Note Date/Time of Note DATE: 10/13/18 TIME: 18:26 Assessment/Plan VTE Prophylaxis Risk score (from [facility])>0 risk: 3 SCD contraindicated: patient refusal Pharmacological prophylaxis: LMWH Lines/Catheters IV Catheter Type (from Nrsg): Saline Lock Urinary Cath still in place: No Assessment/Plan Hospital Course Pt complains of difficulty walking, denies chest pain, denies SOB, will obtain PT eval. Assessment/Plan - S/p hardware removal from L knee on 10/10/[address] Hatfield - Hx Fx of L patella s/p repair - Post-op tachycardia and increased troponin levels, Pt declined the cardiac stress test. Dr Ashraf is following in cardiology consultation. - Sepsis, probably due to phlebitis of R wrist on which Pt had an IV catheter before vs. SIRS from the hardware removal. Continue abx per ID. Dr Murdock is following in ID consultation. - HTN Further recommendations will depend on clinical course. Plan of care discussed with Dr. Everett. Result Diagram: 10/12/18 0509 10/12/18 0509 Exam/Review of Systems Exam Vitals Vital Signs Date Temp Pulse Resp B/P (MAP) Pulse Ox O2 O2 Flow FiO2 Time Delivery Rate 10/13/18 80 16:01 10/13/18 98.0 16 112/69 98 Room Air 15:32 (83) Intake and Output 10/12/18 10/12/18 10/13/18 1515:00 23:00 07:00 IntakeIntake Total 50 ml 600 ml 500 ml BalanceBalance 50 ml 600 ml 500 ml Constitutional: alert, oriented Neck: supple Respiratory: clear to auscultation Cardiovascular: regular rate and rhythm Gastrointestinal: soft, non-tender Musculoskeletal: nl extremities to inspection Extremities: normal pulses, other (s/p lef knee surgery) Neurological: nl mental status Skin: nl turgor Medications Medication Current Medications Ondansetron HCl (Zofran Inj) 4 mg Q4H PRN IV NAUSEA AND/OR VOMITING Last administered on 10/10/18at 16:16; Admin Dose 4 MG; Start 10/10/18 at 16:00 Metoclopramide HCl (Reglan) 10 mg Q6H PRN IV VOMITTING; Start 10/10/18 at 17:00 Hydralazine HCl (Apresoline) 20 mg Q4H PRN IV high blood pressure Last administered on 10/10/18 17:48; Admin Dose 20 MG; Start 10/10/18 at 18:00 Aspirin (Ecotrin) 325 mg DAILY PO Last administered on 10/13/18 08:32; Admin Dose 325 MG; Start 10/11/18 at 09:00 Carvedilol (Coreg) 6.25 mg BID PO Last administered on 10/13/18 08:33; Admin Dose 6.25 MG; Start 10/11/18 at 21:00 Docusate Sodium (Colace) 200 mg BID PO Last administered on 10/13/18 08:32; Admin Dose 200 MG; Start 10/11/18 at 16:00 Al Hydrox/Mg Hydrox/Simethicone (Mag-Al Plus) 30 ml Q6H PRN PO GASTROINTESTINAL UPSET Last administered on 10/12/18 16:16; Admin Dose 30 ML; Start 10/11/18 at 16:30 Bisacodyl (Dulcolax) 10 mg DAILY PRN PO CONSTIPATION Last administered on 10/11/18 17:41; Admin Dose 10 MG; Start 10/11/18 at 16:30 Pantoprazole (Protonix Tab) 40 mg DAILY@06 PO Last administered on 10/13/18 06:13; Admin Dose 40 MG; Start 10/12/18 at 06:00 Enoxaparin Sodium (Lovenox) 40 mg QAM SC Last administered on 10/13/18 08:34; Admin Dose 40 MG; Start 10/12/18 at 11:00 LOLY WRIGHT Oct 13, 2018 18:27
[2018-10-13] MEDS: AL HYDROX/MG HYDROX/SIMETH 30 ML CUP PO PRN (20:38)
[2018-10-14] VITALS (11 sets, daily range): BP systolic 106–138; BP diastolic 57–70; PULSE 67–96; RESP 16–20
[2018-10-14] MEDS: PANTOPRAZOLE (EC) 40 MG TAB PO SCH (06:38)
[2018-10-14] MEDS: DOCUSATE SODIUM 100 MG CAP PO SCH ×2 (08:14→21:22)
[2018-10-14] MEDS: ASPIRIN (EC) 325 MG TAB PO SCH (08:14)
[2018-10-14] MEDS: ENOXAPARIN 40 MG/0.4 ML SYG SC SCH (08:21)
--- NOTE | 2018-10-14 09:21 | CONS ---
Consult Date/Type/Reason Admit Date/Time Oct 10, 2018 at 13:06 Initial Consult Date 10/11/18 Requesting Provider: MEDINA NICOLE MD Date/Time of Note DATE: 10/14/18 TIME: 09:19 Subjective NO acute events - pt feels better - refused [place] SPECT - med rx advised. ROS: No fever, no chills, no nausea, no vomiting, no diarrhea/constipation No recent weight changes No chest pain, no PND, no orthopnea - no CP, improved knee pain now No dizziness, blurred vision No thirst, no heat or cold intolerance Objective Vitals Vital Signs Date Temp Pulse Resp B/P (MAP) Pulse Ox O2 O2 Flow FiO2 Time Delivery Rate 10/14/18 97.9 83 20 138/65 99 07:38 (89) 10/13/18 Room Air 15:32 Intake and Output 10/13/18 10/13/18 10/14/18 1515:00 23:00 07:00 IntakeIntake Total 360 ml 540 ml BalanceBalance 360 ml 540 ml Exam General: WN/WD/NAD, AOx 3 HEENT: Unicetric/atraumatic/EOMI ( follows commands) NECK: JVD elevated, no thyromegaly Lymph: no lymphadenopathy HEART: regular with no S3, II/ systolic murmur at apex LUNGS: Coarse sounds ABD: soft, NT, ND, +BS : Intact Neuro: non focal SKIN: chronic changes EXT: trace edema, brace Results/Medications Result Diagram: 10/14/1819 10/14/18 0519 Results 24 hrs Laboratory Tests Test 10/14/18 05:19 White Blood Count 6.8 # Red Blood Count 4.14 L Hemoglobin 10.9 L Hematocrit 34.4 L Mean Corpuscular Volume 83.1 Mean Corpuscular Hemoglobin 26.3 L Mean Corpuscular Hemoglobin Concent 31.7 L Red Cell Distribution Width 13.4 Platelet Count 318 Mean Platelet Volume 10.5 H Immature Granulocytes % 0.600 H Neutrophils % 58.8 Lymphocytes % 30.3 Monocytes % 8.7 Eosinophils % 1.0 Basophils % 0.6 Nucleated Red Blood Cells % 0.0 Immature Granulocytes # 0.040 H Neutrophils # 4.0 Lymphocytes # 2.1 Monocytes # 0.6 Eosinophils # 0.1 Basophils # 0.0 Nucleated Red Blood Cells # 0.0 Sodium Level 141 Potassium Level 5.0 Chloride Level 101 Carbon Dioxide Level 29 Anion Gap 11 Blood Urea Nitrogen 13 Creatinine 0.69 Est Glomerular Filtrat Rate mL/min > 60 Glucose Level 96 Calcium Level 9.1 Creatine Kinase 47 Creatine Kinase Index 0.6 Creatinine Kinase MB (Mass) 0.29 Troponin I 0.161 *H Home Meds Active Scripts Acetaminophen* (Tylenol*) 325 Mg Tablet, 2 TAB PO Q6 PRN for PAIN AND OR ELEVATED TEMP, #30 TAB Prov:PAM LU PA-C 01/02/17 Reported Medications [Calcium] No Conflict Check, 400 MG PO 11/21/16 Atorvastatin Calcium (Atorvastatin Calcium) 20 Mg Tablet, 20 MG PO QHS, #30 TAB 11/21/16 [Alendronate Sodium] No Conflict Check, 70 MG PO 11/21/16 Enalapril Maleate* (Enalapril Maleate*) 20 Mg Tablet, 20 MG PO DAILY, TAB 11/21/16 Hydrochlorothiazide* (Hydrochlorothiazide*) 12.5 Mg Tablet, 12.5 MG PO DAILY, #30 TAB 11/21/16 [Acetaminophen] No Conflict Check, 500 MG 11/21/16 [Omeprazole] No Conflict Check 11/21/16 Medications Current Medications Ondansetron HCl (Zofran Inj) 4 mg Q4H PRN IV NAUSEA AND/OR VOMITING Last administered on 10/10/18at 16:16; Admin Dose 4 MG; Start 10/10/18 at 16:00 Metoclopramide HCl (Reglan) 10 mg Q6H PRN IV VOMITTING; Start 10/10/18 at 17:00 Hydralazine HCl (Apresoline) 20 mg Q4H PRN IV high blood pressure Last administered on 10/10/18at 17:48; Admin Dose 20 MG; Start 10/10/18 at 18:00 Aspirin (Ecotrin) 325 mg DAILY PO Last administered on 10/14/18at 08:14; Admin Dose 325 MG; Start 10/11/18 at 09:00 Carvedilol (Coreg) 6.25 mg BID PO Last administered on 10/14/18at 08:14; Admin Dose 6.25 MG; Start 10/11/18 at 21:00 Docusate Sodium (Colace) 200 mg BID PO Last administered on 10/14/18 08:14; Admin Dose 200 MG; Start 10/11/18 at 16:00 Al Hydrox/Mg Hydrox/Simethicone (Mag-Al Plus) 30 ml Q6H PRN PO GASTROINTESTINAL UPSET Last administered on 10/13/18 20:38; Admin Dose 30 ML; Start 10/11/18 at 16:30 Bisacodyl (Dulcolax) 10 mg DAILY PRN PO CONSTIPATION Last administered on 10/11/18 17:41; Admin Dose 10 MG; Start 10/11/18 at 16:30 Pantoprazole (Protonix Tab) 40 mg DAILY@06 PO Last administered on 10/14/18 06 :38; Admin Dose 40 MG; Start 10/12/18 at 06:00 Enoxaparin Sodium (Lovenox) 40 mg QAM SC Last administered on 10/14/18 08:21; Admin Dose 40 MG; Start 10/12/18 at 11:00 Assessment/Plan Hospital Course (Demo Recall) 1. Elevated troponins. Etiology of elevated troponins is still unclear. We will then obtain another set of troponins and CK-MB and CK total and follow the patient expectantly. We will monitor clinically now - CK MB+ - pt refused SPECT - will Rx medically now - no new CP. 2. Anemia. Hemoglobin of 12.0 to 10.6. There is no obvious bleeding right now, possibly with some degree of dilution. We will monitor. Defer to surgical team. H/H stable now. No bleeding. 3. Postoperative. Continue postop care. Pichiara robertson - increased ambulation. 4. Infection. The patient is on antibiotics. Continue antibiotic therapy. Treated. 5. Tachycardia. The patient's tachycardia is a sinus tachycardia in nature. I think it might not be unreasonable to try for her a small dose of beta nupur. COLLIN HOWARD MD Oct 14, 2018 09:21
--- NOTE | 2018-10-14 09:45 | CONS ---
Assessment/Plan Assessment/Plan Hospital Course (Demo Recall) - Sepsis, probably due to phlebitis of R wrist on which Pt had an IV catheter before vs. SIRS from the hardware removal - Phlebitis of R wrist on which Pt had an IV catheter before (it was removed), resolving. doppler CARLEE of RUE was negative for phlebitis or DVT - S/p hardware removal from L knee on 10/10/2018 - H/o Fx of L patella s/p repair - S/p post-op nausea and emesis, probable manifestation of sepsis, improved - Post-op tachycardia and increased troponin levels, probably secondary to sepsis vs. SIRS. Pt declined the cardiac stress test Recommendations: - Pending results: blood cultures x2 10/11/18 (NGTD) - Monitor off antibiotics - F/u Echo - Wound care of L knee Management d/w patient, and with Dr. Dominguez Thank you Consultation Date/Type/Reason Admit Date/Time Oct 10, 2018 at 13:06 Initial Consult Date 10/11/18 Type of Consult ID Requesting Provider: MEDINA NICOLE MD Date/Time of Note DATE: 10/14/18 TIME: 09:43 24 HR Interval Summary Free Text/Dictation Patient stated today that she is still having episodes of "hot" and states that "this is because of my gastritis, when I feel the burning here (she points to her mid-stomach) then I feel hot here, here, here and here (points to her forehead, neck, chest, and stomach)." She denies fevers, chills, night sweats, States she places a cool towel on her forehead and neck when she feels hot and it helps. Denies sob, cp, n/v/d, dysuria. She asks me "can I go outside and walk?" "Can I go home?" "Where is my other doctor?" Patient has remained afebrile with no acute issues reported by nursing. Exam/Review of Systems Exam Vitals Vital Signs Date Temp Pulse Resp B/P (MAP) Pulse Ox O2 O2 Flow FiO2 Time Delivery Rate 10/14/18 97.9 83 20 138/65 99 07:38 (89) 10/13/18 Room Air 15:32 Intake and Output 10/13/18 10/13/18 10/14/18 1515:00 23:00 07:00 IntakeIntake Total 360 ml 540 ml BalanceBalance 360 ml 540 ml Allergies Coded Allergies No Known Allergy (Unverified10/10/18) Exam Constitutional: alert, oriented, well developed, other (MASHPEE) Psych: no complaints, nl mood/affect Head: normocephalic, atraumatic Eyes: nl conjunctiva, EOMI, nl lids ENMT: nl external ears & nose, nl lips & teeth, nl nasal mucosa & septum, mucosa pink and moist (no thrush) Neck: supple, non-tender (not swollen) Respiratory: clear to auscultation, normal air movement Cardiovascular: regular rate and rhythm, nl pulses Gastrointestinal: soft, non-tender, bowel sounds (normoactive ) Musculoskeletal: other (L knee well healed scar with minimal swelling, mid healed incision site there is a small area of erythema, without TTP, no swelling, no heat at site - site is covered with a dry gauze and wrapped with an shilpa bandage.) Extremities: normal pulses; No edema Neurological: WINCH OPERATOR II-XII intact, nl mental status, nl speech, nl strength, other (Today was speaking to me in [place]zeri) Skin: nl turgor; No rash or lesions Results Result Diagram: 10/14/18 0519 10/14/18 0519 Results 24hrs Laboratory Tests Test 10/14/18 05:19 White Blood Count 6.8 # Red Blood Count 4.14 L Hemoglobin 10.9 L Hematocrit 34.4 L Mean Corpuscular Volume 83.1 Mean Corpuscular Hemoglobin 26.3 L Mean Corpuscular Hemoglobin Concent 31.7 L Red Cell Distribution Width 13.4 Platelet Count 318 Mean Platelet Volume 10.5 H Immature Granulocytes % 0.600 H Neutrophils % 58.8 Lymphocytes % 30.3 Monocytes % 8.7 Eosinophils % 1.0 Basophils % 0.6 Nucleated Red Blood Cells % 0.0 Immature Granulocytes # 0.040 H Neutrophils # 4.0 Lymphocytes # 2.1 Monocytes # 0.6 Eosinophils # 0.1 Basophils # 0.0 Nucleated Red Blood Cells # 0.0 Sodium Level 141 Potassium Level 5.0 Chloride Level 101 Carbon Dioxide Level 29 Anion Gap 11 Blood Urea Nitrogen 13 Creatinine 0.69 Est Glomerular Filtrat Rate mL/min > 60 Glucose Level 96 Calcium Level 9.1 Creatine Kinase 47 Creatine Kinase Index 0.6 Creatinine Kinase MB (Mass) 0.29 Troponin I 0.161 *H Medications Medication Current Medications Ondansetron HCl (Zofran Inj) 4 mg Q4H PRN IV NAUSEA AND/OR VOMITING Last administered on 10/10/18 16:16; Admin Dose 4 MG; Start 10/10/18 at 16:00 Metoclopramide HCl (Reglan) 10 mg Q6H PRN IV VOMITTING; Start 10/10/18 at 17:00 Hydralazine HCl (Apresoline) 20 mg Q4H PRN IV high blood pressure Last administered on 10/10/18 17:48; Admin Dose 20 MG; Start 10/10/18 at 18:00 Aspirin (Ecotrin) 325 mg DAILY PO Last administered on 10/14/18 08:14; Admin Dose 325 MG; Start 10/11/18 at 09:00 Carvedilol (Coreg) 6.25 mg BID PO Last administered on 10/14/18 08:14; Admin Dose 6.25 MG; Start 10/11/18 at 21:00 Docusate Sodium (Colace) 200 mg BID PO Last administered on 10/14/18 08:14; Admin Dose 200 MG; Start 10/11/18 at 16:00 Al Hydrox/Mg Hydrox/Simethicone (Mag-Al Plus) 30 ml Q6H PRN PO GASTROINTESTINAL UPSET Last administered on 10/13/18 20:38; Admin Dose 30 ML; Start 10/11/18 at 16:30 Bisacodyl (Dulcolax) 10 mg DAILY PRN PO CONSTIPATION Last administered on 10/11/18 17:41; Admin Dose 10 MG; Start 10/11/18 at 16:30 Pantoprazole (Protonix Tab) 40 mg DAILY@06 PO Last administered on 10/14/18 06:38; Admin Dose 40 MG; Start 10/12/18 at 06:00 Enoxaparin Sodium (Lovenox) 40 mg QAM SC Last administered on 10/14/18 08:21; Admin Dose 40 MG; Start 10/12/18 at 11:00 ALLY MONIQUE NP Oct 14, 2018 09:45
--- NOTE | 2018-10-14 12:04 | PN ---
Date/Time of Note Date/Time of Note DATE: 10/14/18 TIME: 11:56 Assessment/Plan VTE Prophylaxis Risk score (from [facility])>0 risk: 4 SCD applied (from [facility]): No SCD contraindicated: other Pharmacological prophylaxis: LMWH Lines/Catheters [facility] C[facility]ter Type (from [facility] Saline Lock Urinary Cath still in place: No Assessment/Plan Hospital Course Patient with elevated troponin however trending down continue telemetry monitoring follow-up cardiology recommendations. Assessment/Plan - Elevated troponin and post-op tachycardia. Pt declined the cardiac stress test. Dr Ashraf is following in cardiology consultation. - Stage I diastolic and mild mild systolic dysfunction with ejection fraction of 45% per 2D echo. - S/p hardware removal from L knee on 10/10/[address] Hatfield - Hx Fx of L patella s/p repair - Sepsis, probably due to phlebitis of R wrist on which Pt had an IV catheter before vs. SIRS from the hardware removal. Continue abx per ID. Dr Murdock is following in ID consultation. - HTN Further recommendations will depend on clinical course. Plan of care discussed with Dr. Everett. Result Diagram: 10/14/18 0519 10/14/18 0519 Results 24hrs Laboratory Tests Test 10/14/18 05:19 White Blood Count 6.8 # Red Blood Count 4.14 L Hemoglobin 10.9 L Hematocrit 34.4 L Mean Corpuscular Volume 83.1 Mean Corpuscular Hemoglobin 26.3 L Mean Corpuscular Hemoglobin Concent 31.7 L Red Cell Distribution Width 13.4 Platelet Count 318 Mean Platelet Volume 10.5 H Immature Granulocytes % 0.600 H Neutrophils % 58.8 Lymphocytes % 30.3 Monocytes % 8.7 Eosinophils % 1.0 Basophils % 0.6 Nucleated Red Blood Cells % 0.0 Immature Granulocytes # 0.040 H Neutrophils # 4.0 Lymphocytes # 2.1 Monocytes # 0.6 Eosinophils # 0.1 Basophils # 0.0 Nucleated Red Blood Cells # 0.0 Sodium Level 141 Potassium Level 5.0 Chloride Level 101 Carbon Dioxide Level 29 Anion Gap 11 Blood Urea Nitrogen 13 Creatinine 0.69 Est Glomerular Filtrat Rate mL/min > 60 Glucose Level 96 Calcium Level 9.1 Creatine Kinase 47 Creatine Kinase Index 0.6 Creatinine Kinase MB (Mass) 0.29 Troponin I 0.161 *H Exam/Review of Systems Exam Vitals Vital Signs Date Temp Pulse Resp B/P (MAP) Pulse Ox O2 O2 Flow FiO2 Time Delivery Rate 10/14/18 97.9 73 20 106/57 99 11:47 (73) 10/13/18 Room Air 15:32 Intake and Output 10/13/18 10/13/18 10/14/18 1515:00 23:00 07:00 IntakeIntake Total 360 ml 540 ml BalanceBalance 360 ml 540 ml Exam Constitutional: alert, oriented Respiratory: clear to auscultation Cardiovascular: regular rate and rhythm Gastrointestinal: soft, non-tender Musculoskeletal: nl extremities to inspection Extremities: normal pulses, other (s/p lef knee surgery) Neurological: nl mental status Skin: nl turgor Results Results 24hrs Laboratory Tests Test 10/14/18 05:19 White Blood Count 6.8 # Red Blood Count 4.14 L Hemoglobin 10.9 L Hematocrit 34.4 L Mean Corpuscular Volume 83.1 Mean Corpuscular Hemoglobin 26.3 L Mean Corpuscular Hemoglobin Concent 31.7 L Red Cell Distribution Width 13.4 Platelet Count 318 Mean Platelet Volume 10.5 H Immature Granulocytes % 0.600 H Neutrophils % 58.8 Lymphocytes % 30.3 Monocytes % 8.7 Eosinophils % 1.0 Basophils % 0.6 Nucleated Red Blood Cells % 0.0 Immature Granulocytes # 0.040 H Neutrophils # 4.0 Lymphocytes # 2.1 Monocytes # 0.6 Eosinophils # 0.1 Basophils # 0.0 Nucleated Red Blood Cells # 0.0 Sodium Level 141 Potassium Level 5.0 Chloride Level 101 Carbon Dioxide Level 29 Anion Gap 11 Blood Urea Nitrogen 13 Creatinine 0.69 Est Glomerular Filtrat Rate mL/min > 60 Glucose Level 96 Calcium Level 9.1 Creatine Kinase 47 Creatine Kinase Index 0.6 Creatinine Kinase MB (Mass) 0.29 Troponin I 0.161 *H Medications Medication Current Medications Ondansetron HCl (Zofran Inj) 4 mg Q4H PRN IV NAUSEA AND/OR VOMITING Last administered on 10/10/18at 16:16; Admin Dose 4 MG; Start 10/10/18 at 16:00 Metoclopramide HCl (Reglan) 10 mg Q6H PRN IV VOMITTING; Start 10/10/18 at 17:00 Hydralazine HCl (Apresoline) 20 mg Q4H PRN IV high blood pressure Last administered on 10/10/18 17:48; Admin Dose 20 MG; Start 10/10/18 at 18:00 Aspirin (Ecotrin) 325 mg DAILY PO Last administered on 10/14/18 08:14; Admin Dose 325 MG; Start 10/11/18 at 09:00 Carvedilol (Coreg) 6.25 mg BID PO Last administered on 10/14/18 08:14; Admin Dose 6.25 MG; Start 10/11/18 at 21:00 Docusate Sodium (Colace) 200 mg BID PO Last administered on 10/14/18 08:14; Admin Dose 200 MG; Start 10/11/18 at 16:00 Al Hydrox/Mg Hydrox/Simethicone (Mag-Al Plus) 30 ml Q6H PRN PO GASTROINTESTINAL UPSET Last administered on 10/13/18 20:38; Admin Dose 30 ML; Start 10/11/18 at 16:30 Bisacodyl (Dulcolax) 10 mg DAILY PRN PO CONSTIPATION Last administered on 10/11/18 17:41; Admin Dose 10 MG; Start 10/11/18 at 16:30 Pantoprazole (Protonix Tab) 40 mg DAILY@06 PO Last administered on 10/14/18 06:38; Admin Dose 40 MG; Start 10/12/18 at 06:00 Enoxaparin Sodium (Lovenox) 40 mg QAM SC Last administered on 10/14/18 08:21; Admin Dose 40 MG; Start 10/12/18 at 11:00 LOLY WRIGHT Oct 14, 2018 12:04
[2018-10-14] MEDS: AL HYDROX/MG HYDROX/SIMETH 30 ML CUP PO PRN (21:22)
[2018-10-15] VITALS (12 sets, daily range): BP systolic 93–134; BP diastolic 53–74; PULSE 73–92; RESP 17–20
[2018-10-15] MEDS: PANTOPRAZOLE (EC) 40 MG TAB PO SCH (05:24)
[2018-10-15] MEDS: DOCUSATE SODIUM 100 MG CAP PO SCH ×2 (09:11→20:17)
[2018-10-15] MEDS: ASPIRIN (EC) 325 MG TAB PO SCH (09:11)
[2018-10-15] MEDS: ENOXAPARIN 40 MG/0.4 ML SYG SC SCH (09:15)
--- NOTE | 2018-10-15 11:30 | CONS ---
Assessment/Plan Assessment/Plan Hospital Course (Demo Recall) - Sepsis, probably due to phlebitis of R wrist on which Pt had an IV catheter before vs. SIRS from the hardware removal - Phlebitis of R wrist on which Pt had an IV catheter before (it was removed), resolving. doppler CARLEE of RUE was negative for phlebitis or DVT - S/p hardware removal from L knee on 10/10/2018 - H/o Fx of L patella s/p repair - S/p post-op nausea and emesis, probable manifestation of sepsis, improved - Post-op tachycardia and increased troponin levels, probably secondary to sepsis vs. SIRS. Pt declined the cardiac stress test Recommendations: - Pending results: blood cultures x2 10/11/18 (NGTD) - Monitor off antibiotics - F/u Echo - Wound care of L knee Consultation Date/Type/Reason Admit Date/Time Oct 10, 2018 at 13:06 Initial Consult Date 10/11/18 Requesting Provider: MEDINA NICOLE MD Date/Time of Note DATE: 10/15/18 TIME: 11:27 24 HR Interval Summary Free Text/Dictation D/W NURSING AND patient at bedside Exam/Review of Systems Exam Vitals Vital Signs Date Temp Pulse Resp B/P (MAP) Pulse Ox O2 O2 Flow FiO2 Time Delivery Rate 10/15/18 82 08:09 10/15/18 98.1 18 97/61 (73) 97 07:29 10/13/18 Room Air 15:32 Intake and Output 10/14/18 10/14/18 10/15/18 1515:00 23:00 07:00 IntakeIntake Total 350 ml 750 ml 550 ml BalanceBalance 350 ml 750 ml 550 ml Constitutional: alert, oriented, well developed Psych: no complaints, nl mood/affect Head: normocephalic, atraumatic Eyes: nl conjunctiva, EOMI, nl lids, nl sclera, PERRL ENMT: nl external ears & nose, nl lips & teeth, nl nasal mucosa & septum Neck: supple, non-tender Respiratory: clear to auscultation, normal air movement Cardiovascular: regular rate and rhythm, nl pulses Gastrointestinal: soft, nl liver, spleen, non-tender Results Result Diagram: 10/15/18 0507 10/15/18 0507 Results 24hrs Laboratory Tests Test 10/15/18 05:07 White Blood Count 7.5 Red Blood Count 4.53 Hemoglobin 12.0 Hematocrit 37.3 Mean Corpuscular Volume 82.3 Mean Corpuscular Hemoglobin 26.5 L Mean Corpuscular Hemoglobin Concent 32.2 Red Cell Distribution Width 13.3 Platelet Count 373 Mean Platelet Volume 10.1 Immature Granulocytes % 0.400 Neutrophils % 62.1 Lymphocytes % 27.2 Monocytes % 8.7 Eosinophils % 0.9 Basophils % 0.7 Nucleated Red Blood Cells % 0.0 Immature Granulocytes # 0.030 Neutrophils # 4.7 Lymphocytes # 2.0 Monocytes # 0.7 Eosinophils # 0.1 Basophils # 0.1 Nucleated Red Blood Cells # 0.0 Sodium Level 141 Potassium Level 4.6 Chloride Level 101 Carbon Dioxide Level 36 H Anion Gap 4 L Blood Urea Nitrogen 18 Creatinine 0.71 Est Glomerular Filtrat Rate mL/min > 60 Glucose Level 105 Calcium Level 9.4 Troponin I 0.069 Medications Medication Current Medications Ondansetron HCl (Zofran Inj) 4 mg Q4H PRN IV NAUSEA AND/OR VOMITING Last administered on 10/10/18 16:16; Admin Dose 4 MG; Start 10/10/18 at 16:00 Metoclopramide HCl (Reglan) 10 mg Q6H PRN IV VOMITTING; Start 10/10/18 at 17:00 Hydralazine HCl (Apresoline) 20 mg Q4H PRN IV high blood pressure Last administered on 10/10/18 17:48; Admin Dose 20 MG; Start 10/10/18 at 18:00 Aspirin (Ecotrin) 325 mg DAILY PO Last administered on 10/15/18 09:11; Admin Dose 325 MG; Start 10/11/18 at 09:00 Carvedilol (Coreg) 6.25 mg BID PO Last administered on 10/15/18 09:11; Admin Dose 6.25 MG; Start 10/11/18 at 21:00 Docusate Sodium (Colace) 200 mg BID PO Last administered on 10/15/18 09:11; Admin Dose 200 MG; Start 10/11/18 at 16:00 Al Hydrox/Mg Hydrox/Simethicone (Mag-Al Plus) 30 ml Q6H PRN PO GASTROINTESTINAL UPSET Last administered on 10/14/18 21:22; Admin Dose 30 ML; Start 10/11/18 at 16:30 Bisacodyl (Dulcolax) 10 mg DAILY PRN PO CONSTIPATION Last administered on 10/11/18at 17:41; Admin Dose 10 MG; Start 10/11/18 at 16:30 Pantoprazole (Protonix Tab) 40 mg DAILY@06 PO Last administered on 10/15/18at 05:24; Admin Dose 40 MG; Start 10/12/18 at 06:00 Enoxaparin Sodium (Lovenox) 40 mg QAM SC Last administered on 10/15/18at 09:15; Admin Dose 40 MG; Start 10/12/18 at 11:00 NANNETTE CARO MD Oct 15, 2018 11:30
--- NOTE | 2018-10-15 12:46 | PN ---
Date/Time of Note Date/Time of Note DATE: 10/15/18 TIME: 12:39 Assessment/Plan VTE Prophylaxis Risk score (from Ns)>0 risk: 3 SCD applied (from [facility] [place], [place]): No SCD contraindicated: bilateral LE trauma Pharmacological prophylaxis: LMWH Lines/Catheters IV Catheter Type (from [facility]): Saline Lock Urinary Cath still in place: No Assessment/Plan Hospital Course Patient is awake, alert, denies any pain denies, denies shortness of breath. Patient stated that she wants to know "what is going on with her heart"and and wished to proceed with stress test, however, patient is already ate lunch, so will ask Dr. Ashraf to schedule her possibly tomorrow. Assessment/Plan - Elevated troponin and post-op tachycardia. Troponin is trended down, patient denies any chest pain. Pt declined the cardiac stress test. Dr Ashraf is following in cardiology consultation. - Stage I diastolic and mild mild systolic dysfunction with ejection fraction of 45% per 2D echo. - S/p hardware removal from L knee on 10/10/[address] Hatfield - Hx Fx of L patella s/p repair - Sepsis, probably due to phlebitis of R wrist on which Pt had an IV catheter before vs. SIRS from the hardware removal. Continue abx per ID. Dr Murdock is following in ID consultation. - HTN Further recommendations will depend on clinical course. Plan of care discussed with Dr. Everett. Result Diagram: 10/15/18 0507 10/15/18 0507 Results 24hrs Laboratory Tests Test 10/15/18 05:07 White Blood Count 7.5 Red Blood Count 4.53 Hemoglobin 12.0 Hematocrit 37.3 Mean Corpuscular Volume 82.3 Mean Corpuscular Hemoglobin 26.5 L Mean Corpuscular Hemoglobin Concent 32.2 Red Cell Distribution Width 13.3 Platelet Count 373 Mean Platelet Volume 10.1 Immature Granulocytes % 0.400 Neutrophils % 62.1 Lymphocytes % 27.2 Monocytes % 8.7 Eosinophils % 0.9 Basophils % 0.7 Nucleated Red Blood Cells % 0.0 Immature Granulocytes # 0.030 Neutrophils # 4.7 Lymphocytes # 2.0 Monocytes # 0.7 Eosinophils # 0.1 Basophils # 0.1 Nucleated Red Blood Cells # 0.0 Sodium Level 141 Potassium Level 4.6 Chloride Level 101 Carbon Dioxide Level 36 H Anion Gap 4 L Blood Urea Nitrogen 18 Creatinine 0.71 Est Glomerular Filtrat Rate mL/min > 60 Glucose Level 105 Calcium Level 9.4 Troponin I 0.069 Exam/Review of Systems Exam Vitals Vital Signs Date Temp Pulse Resp B/P (MAP) Pulse Ox O2 O2 Flow FiO2 Time Delivery Rate 10/15/18 85 12:08 10/15/18 98.3 17 93/53 (66) 100 11:28 10/13/18 Room Air 15:32 Intake and Output 10/14/18 10/14/18 10/15/18 1414:59 22:59 06:59 IntakeIntake Total 350 ml 750 ml 550 ml BalanceBalance 350 ml 750 ml 550 ml Exam Constitutional: alert, oriented Respiratory: clear to auscultation Cardiovascular: regular rate and rhythm Gastrointestinal: soft, non-tender Musculoskeletal: nl extremities to inspection Extremities: normal pulses, other (s/p left knee surgery) Neurological: nl mental status Skin: nl turgor Results Results 24hrs Laboratory Tests Test 10/15/18 05:07 White Blood Count 7.5 Red Blood Count 4.53 Hemoglobin 12.0 Hematocrit 37.3 Mean Corpuscular Volume 82.3 Mean Corpuscular Hemoglobin 26.5 L Mean Corpuscular Hemoglobin Concent 32.2 Red Cell Distribution Width 13.3 Platelet Count 373 Mean Platelet Volume 10.1 Immature Granulocytes % 0.400 Neutrophils % 62.1 Lymphocytes % 27.2 Monocytes % 8.7 Eosinophils % 0.9 Basophils % 0.7 Nucleated Red Blood Cells % 0.0 Immature Granulocytes # 0.030 Neutrophils # 4.7 Lymphocytes # 2.0 Monocytes # 0.7 Eosinophils # 0.1 Basophils # 0.1 Nucleated Red Blood Cells # 0.0 Sodium Level 141 Potassium Level 4.6 Chloride Level 101 Carbon Dioxide Level 36 H Anion Gap 4 L Blood Urea Nitrogen 18 Creatinine 0.71 Est Glomerular Filtrat Rate mL/min > 60 Glucose Level 105 Calcium Level 9.4 Troponin I 0.069 Medications Medication Current Medications Ondansetron HCl (Zofran Inj) 4 mg Q4H PRN IV NAUSEA AND/OR VOMITING Last administered on 10/10/18at 16:16; Admin Dose 4 MG; Start 10/10/18 at 16:00 Metoclopramide HCl (Reglan) 10 mg Q6H PRN IV VOMITTING; Start 10/10/18 at 17:00 Hydralazine HCl (Apresoline) 20 mg Q4H PRN IV high blood pressure Last administered on 10/10/18 17:48; Admin Dose 20 MG; Start 10/10/18 at 18:00 Aspirin (Ecotrin) 325 mg DAILY PO Last administered on 10/15/18 09:11; Admin Dose 325 MG; Start 10/11/18 at 09:00 Carvedilol (Coreg) 6.25 mg BID PO Last administered on 10/15/18 09:11; Admin Dose 6.25 MG; Start 10/11/18 at 21:00 Docusate Sodium (Colace) 200 mg BID PO Last administered on 10/15/18 09:11; Admin Dose 200 MG; Start 10/11/18 at 16:00 Al Hydrox/Mg Hydrox/Simethicone (Mag-Al Plus) 30 ml Q6H PRN PO GASTROINTESTINAL UPSET Last administered on 10/14/18 21:22; Admin Dose 30 ML; Start 10/11/18 at 16:30 Bisacodyl (Dulcolax) 10 mg DAILY PRN PO CONSTIPATION Last administered on 10/11/18at 17:41; Admin Dose 10 MG; Start 10/11/18 at 16:30 Pantoprazole (Protonix Tab) 40 mg DAILY@06 PO Last administered on 10/15/18at 05:24; Admin Dose 40 MG; Start 10/12/18 at 06:00 Enoxaparin Sodium (Lovenox) 40 mg QAM SC Last administered on 10/15/18 09:15; Admin Dose 40 MG; Start 10/12/18 at 11:00 LOLY WRIGHT Oct 15, 2018 12:46
[2018-10-15] MEDS: AL HYDROX/MG HYDROX/SIMETH 30 ML CUP PO PRN ×2 (13:15→20:17)
[2018-10-15] MEDS ORDERED: ASPI325T32 PO (13:23)
[2018-10-15] MEDS ORDERED: PANT40TA4 PO (13:23)
[2018-10-15] MEDS ORDERED: CARV6.2579 PO (13:23)
--- NOTE | 2018-10-15 13:48 | CONS ---
Assessment/Plan Assessment/Plan Hospital Course (Demo Recall) IMP: 1.Positive Troponin-minimal uptrend. NO CP/SOB 2.HTN 3.[id number] now improved 4.Post-op s/p knee surgery 5. Cardiomyopathy-EF 45-50 by echo REcc: -Tele -Contineu coreg -Contineu asa -Contineu abx's and f/u cx data -Now patient would like to undergo Lexiscan Consultation Date/Type/Reason Admit Date/Time Oct 10, 2018 at 13:06 Initial Consult Date 10/11/18 Type of Consult Cardiology Reason for Consultation positive troponin Requesting Provider: MEDINA NICOLE MD Date/Time of Note DATE: 10/15/18 TIME: 13:45 Exam/Review of Systems Vital Signs Vitals Vital Signs Date Temp Pulse Resp B/P (MAP) Pulse Ox O2 O2 Flow FiO2 Time Delivery Rate 10/15/18 85 12:08 10/15/18 98.3 17 93/53 (66) 100 11:28 10/13/18 Room Air 15:32 Intake and Output 10/14/18 10/14/18 10/15/18 1414:59 22:59 06:59 IntakeIntake Total 350 ml 750 ml 550 ml BalanceBalance 350 ml 750 ml 550 ml Exam Exam Review of Systems: CONSTITUTIONAL: No fevers, chills. PULMONARY: No sob CARDIOVASCULAR: No chest pain/palpitations GASTROINTESTINAL: No nausea/vomiting. GENITOURINARY: No hematuria/dysuria. MUSCULOSKELETAL: No myagias/arthalgias. PSYCHIATRIC: The patient denies depression. NEUROLOGIC: No weakness Constitutional: alert Psych: no complaints Head: normocephalic ENMT: mucosa pink and moist Neck: supple, jvd Respiratory: diminished breath sounds (at bases/B) Cardiovascular: regular rate and rhythm Gastrointestinal: soft, non-tender Musculoskeletal: muscle weakness (generalized mild) Neurological: other (none) Labs Result Diagram: 10/15/18 0507 10/15/18 0507 Results 24hrs Laboratory Tests Test 10/15/18 05:07 White Blood Count 7.5 Red Blood Count 4.53 Hemoglobin 12.0 Hematocrit 37.3 Mean Corpuscular Volume 82.3 Mean Corpuscular Hemoglobin 26.5 L Mean Corpuscular Hemoglobin Concent 32.2 Red Cell Distribution Width 13.3 Platelet Count 373 Mean Platelet Volume 10.1 Immature Granulocytes % 0.400 Neutrophils % 62.1 Lymphocytes % 27.2 Monocytes % 8.7 Eosinophils % 0.9 Basophils % 0.7 Nucleated Red Blood Cells % 0.0 Immature Granulocytes # 0.030 Neutrophils # 4.7 Lymphocytes # 2.0 Monocytes # 0.7 Eosinophils # 0.1 Basophils # 0.1 Nucleated Red Blood Cells # 0.0 Sodium Level 141 Potassium Level 4.6 Chloride Level 101 Carbon Dioxide Level 36 H Anion Gap 4 L Blood Urea Nitrogen 18 Creatinine 0.71 Est Glomerular Filtrat Rate mL/min > 60 Glucose Level 105 Calcium Level 9.4 Troponin I 0.069 Medications Medications Current Medications Ondansetron HCl (Zofran Inj) 4 mg Q4H PRN IV NAUSEA AND/OR VOMITING Last administered on 10/10/18 16:16; Admin Dose 4 MG; Start 10/10/18 at 16:00 Metoclopramide HCl (Reglan) 10 mg Q6H PRN IV VOMITTING; Start 10/10/18 at 17:00 Hydralazine HCl (Apresoline) 20 mg Q4H PRN IV high blood pressure Last administered on 10/10/18 17:48; Admin Dose 20 MG; Start 10/10/18 at 18:00 Aspirin (Ecotrin) 325 mg DAILY PO Last administered on 10/15/18 09:11; Admin Dose 325 MG; Start 10/11/18 at 09:00 Carvedilol (Coreg) 6.25 mg BID PO Last administered on 10/15/18 09:11; Admin Dose 6.25 MG; Start 10/11/18 at 21:00 Docusate Sodium (Colace) 200 mg BID PO Last administered on 10/15/18 09:11; Admin Dose 200 MG; Start 10/11/18 at 16:00 Al Hydrox/Mg Hydrox/Simethicone (Mag-Al Plus) 30 ml Q6H PRN PO GASTROINTESTINAL UPSET Last administered on 10/15/18 13:15; Admin Dose 30 ML; Start 10/11/18 at 16:30 Bisacodyl (Dulcolax) 10 mg DAILY PRN PO CONSTIPATION Last administered on 10/11/18 17:41; Admin Dose 10 MG; Start 10/11/18 at 16:30 Pantoprazole (Protonix Tab) 40 mg DAILY@06 PO Last administered on 10/15/18at 05:24; Admin Dose 40 MG; Start 10/12/18 at 06:00 Enoxaparin Sodium (Lovenox) 40 mg QAM SC Last administered on 10/15/18at 09:15; Admin Dose 40 MG; Start 10/12/18 at 11:00 BRENDA MARINELLI Oct 15, 2018 13:48
[2018-10-16] VITALS (10 sets, daily range): BP systolic 99–129; BP diastolic 52–69; PULSE 69–89; RESP 16–18
[2018-10-16] MEDS: PANTOPRAZOLE (EC) 40 MG TAB PO SCH (05:26)
[2018-10-16] MEDS: DOCUSATE SODIUM 100 MG CAP PO SCH ×2 (09:37→20:08)
[2018-10-16] MEDS: ASPIRIN (EC) 325 MG TAB PO SCH (09:39)
[2018-10-16] MEDS: ENOXAPARIN 40 MG/0.4 ML SYG SC SCH (09:50)
[2018-10-16] MEDS ORDERED: REGADENOSON 0.4 MG/5 ML SYG ONE (11:24)
--- NOTE | 2018-10-16 11:45 | CONS ---
Assessment/Plan Assessment/Plan Hospital Course (Demo Recall) IMP: 1.Positive Troponin-minimal uptrend. NO CP/SOB 2.HTN 3.[id number] now improved 4.Post-op s/p knee surgery 5. Cardiomyopathy-EF 45-50 by echo REcc: -Tele -Contineu coreg -Contineu asa -Contineu abx's and f/u cx data -Lexiscan stress test today and if no significant ischemia then ok for d/c Consultation Date/Type/Reason Admit Date/Time Oct 10, 2018 at 13:06 Initial Consult Date 10/11/18 Type of Consult Cardiology Reason for Consultation positive troponin Requesting Provider: MEDINA NICOLE MD Date/Time of Note DATE: 10/16/18 TIME: 11:42 Exam/Review of Systems Vital Signs Vitals Vital Signs Date Temp Pulse Resp B/P (MAP) Pulse Ox O2 O2 Flow FiO2 Time Delivery Rate 10/16/18 69 08:09 10/16/18 98.1 16 121/69 99 07:27 (86) 10/13/18 Room Air 15:32 Intake and Output 10/15/18 10/15/18 10/16/18 1515:00 23:00 07:00 IntakeIntake Total 900 ml 610 ml BalanceBalance 900 ml 610 ml Exam Exam Review of Systems: CONSTITUTIONAL: No fevers, chills. PULMONARY: mild sob CARDIOVASCULAR: No chest pain/palpitations GASTROINTESTINAL: No nausea/vomiting. GENITOURINARY: No hematuria/dysuria. MUSCULOSKELETAL: No myagias/arthalgias. PSYCHIATRIC: The patient denies depression. NEUROLOGIC: No weakness Constitutional: alert Psych: no complaints Head: normocephalic ENMT: mucosa pink and moist Neck: supple, jvd (9 cm water) Respiratory: clear to auscultation Cardiovascular: regular rate and rhythm Gastrointestinal: soft Musculoskeletal: muscle tone (normal) Extremities: edema (none) Neurological: other Labs Result Diagram: 10/16/18 0538 10/16/18 0538 Results 24hrs Laboratory Tests Test 10/16/18 05:38 White Blood Count 6.7 Red Blood Count 4.53 Hemoglobin 11.8 L Hematocrit 37.7 Mean Corpuscular Volume 83.2 Mean Corpuscular Hemoglobin 26.0 L Mean Corpuscular Hemoglobin Concent 31.3 L Red Cell Distribution Width 13.2 Platelet Count 366 Mean Platelet Volume 10.6 H Immature Granulocytes % 0.600 H Neutrophils % 61.6 Lymphocytes % 25.7 Monocytes % 10.0 Eosinophils % 1.2 Basophils % 0.9 Nucleated Red Blood Cells % 0.0 Immature Granulocytes # 0.040 H Neutrophils # 4.2 Lymphocytes # 1.7 Monocytes # 0.7 Eosinophils # 0.1 Basophils # 0.1 Nucleated Red Blood Cells # 0.0 Sodium Level 140 Potassium Level 4.9 Chloride Level 101 Carbon Dioxide Level 34 H Anion Gap 5 Blood Urea Nitrogen 17 Creatinine 0.63 Est Glomerular Filtrat Rate mL/min > 60 Glucose Level 88 Calcium Level 9.4 Medications Medications Current Medications Ondansetron HCl (Zofran Inj) 4 mg Q4H PRN IV NAUSEA AND/OR VOMITING Last administered on 10/10/18 16:16; Admin Dose 4 MG; Start 10/10/18 at 16:00 Metoclopramide HCl (Reglan) 10 mg Q6H PRN IV VOMITTING; Start 10/10/18 at 17:00 Hydralazine HCl (Apresoline) 20 mg Q4H PRN IV high blood pressure Last administered on 10/10/18 17:48; Admin Dose 20 MG; Start 10/10/18 at 18:00 Aspirin (Ecotrin) 325 mg DAILY PO Last administered on 10/16/18 09:39; Admin Dose 325 MG; Start 10/11/18 at 09:00 Carvedilol (Coreg) 6.25 mg BID PO Last administered on 10/16/18 09:38; Admin D ose 6.25 MG; Start 10/11/18 at 21:00 Docusate Sodium (Colace) 200 mg BID PO Last administered on 10/16/18 09:37; Admin Dose 200 MG; Start 10/11/18 at 16:00 Al Hydrox/Mg Hydrox/Simethicone (Mag-Al Plus) 30 ml Q6H PRN PO GASTROINTESTINAL UPSET Last administered on 10/15/18 20:17; Admin Dose 30 ML; Start 10/11/18 at 16:30 Bisacodyl (Dulcolax) 10 mg DAILY PRN PO CONSTIPATION Last administered on 10/11/18 17:41; Admin Dose 10 MG; Start 10/11/18 at 16:30 Pantoprazole (Protonix Tab) 40 mg DAILY@06 PO Last administered on 10/16/18at 05:26; Admin Dose 40 MG; Start 10/12/18 at 06:00 Enoxaparin Sodium (Lovenox) 40 mg QAM SC Last administered on 10/16/18at 09:50; Admin Dose 40 MG; Start 10/12/18 at 11:00 BRENDA MARINELLI Oct 16, 2018 11:45
--- NOTE | 2018-10-16 13:30 | CARRPT ---
DATE OF PROCEDURE: 10/16/2018 TYPE OF PROCEDURE: Lexiscan Cardiolite stress test, electrocardiogram portion. INDICATION: Chest pain, positive troponin, assess for ischemia. BASELINE VITAL SIGNS AND ELECTROCARDIOGRAM: Pulse of 77, blood pressure 145/74. Electrocardiogram s hows normal sinus rhythm, rate 77, normal axis, normal intervals with inferior T-wave inversion. PROCEDURE IN DETAILS: The patient underwent standard Lexiscan infusion over 10 seconds followed by r adiolabeled tracer. The patient's test was stopped at completion of protocol. Maximal achieved bloo d pressure during the test was 169/76. Maximum heart rate during the test was 146. ELECTROCARDIOGRAM FINDINGS: During Lexiscan infusion, the patient did not develop any new Lexiscan-i nduced ST or T-wave changes from baseline abnormalities. No documented PVCs. SYMPTOMS: The patient had complaints of mild shortness of breath, palpitations during stress test th at resolved in recovery. IMPRESSION: 1. No Lexiscan-induced ST or T-wave changes from baseline abnormalities diagnostic for ischemia. 2. No complaints of chest pain during stress testing. Positive shortness of breath and palpitations which resolved in recovery. 3. No documented premature ventricular contractions during stress test. 4. Report of nuclear images to follow in separate dictation. Dictated By: BRENDA BARRERA/YULY Conf#: [id number] DID#: [id number] CC: MEDINA NICOLE MD; NANNETTE CARO MD; KIMBERLY SKAGGS MD;*EndCC*
--- NOTE | 2018-10-16 14:32 | CONS ---
Assessment/Plan Assessment/Plan Hospital Course (Demo Recall) - S/p sepsis, probably due to phlebitis of R wrist on which Pt had an IV catheter before vs. SIRS from the hardware removal - Leukocytosis and tachycardia resolved - Phlebitis of R wrist on which Pt had an IV catheter before (it was removed), resolved. Doppler CARLEE of RUE was negative for phlebitis or DVT - S/p hardware removal from L knee on 10/10/2018 - H/o Fx of L patella s/p repair - S/p post-op nausea and emesis, probable manifestation of sepsis; resolved - Post-op tachycardia and mildly elevated troponin levels, probably secondary to sepsis - resolved - S/p Lexiscan stress test 10/16/2018 with no e/o stress-induced ischemia, no wall motion abnormalities and EF 51% at stress - Hypertension Recommendations: - Continue to monitor off antibiotics - Pending final blood cx results from 10/11/18 (NGTD) - Continue local wound care of L knee - Okay for DC home from ID standpoint Management d/w patient, GAEL Phelan, and with Dr. Dominguez Consultation Date/Type/Reason Admit Date/Time Oct 10, 2018 at 13:06 Initial Consult Date 10/11/18 Type of Consult Infectious Disease Requesting Provider: MEDINA NICOLE MD Date/Time of Note DATE: 10/16/18 TIME: 14:29 24 HR Interval Summary Free Text/Dictation Pt recently returned from Lexican stress test per d/w nursing. Pt denies any pain, SOB, n/v/d, dysuria. Asking if she is going home today. Exam/Review of Systems Exam Vitals Vital Signs Date Temp Pulse Resp B/P (MAP) Pulse Ox O2 O2 Flow FiO2 Time Delivery Rate 10/16/18 83 12:30 10/16/18 98.1 16 121/69 99 07:27 (86) 10/13/18 Room Air 15:32 Intake and Output 10/15/18 10/15/18 10/16/18 1515:00 23:00 07:00 IntakeIntake Total 900 ml 610 ml BalanceBalance 900 ml 610 ml Constitutional: alert, oriented, well developed, other (petite, walking outside of room in hallway in no acute distress) Psych: no complaints, nl mood/affect Head: normocephalic, atraumatic Eyes: nl conjunctiva, nl lids, nl sclera ENMT: nl external ears & nose, nl lips & teeth, nl nasal mucosa & septum, mucosa pink and moist (no thrush), other (HOPI) Neck: supple, non-tender Respiratory: clear to auscultation, normal air movement Cardiovascular: regular rate and rhythm, nl pulses, other (stable on room air) Gastrointestinal: soft, non-tender, bowel sounds (normoactive) Musculoskeletal: nl extremities to inspection, nl gait and stance, other (L knee wrapped with Kerlix c/d/i with no surrounding TTP) Extremities: normal pulses; No edema Neurological: nl mental status, nl speech, nl strength Skin: nl turgor; No rash or lesions Results Result Diagram: 10/16/1838 10/16/18 0538 Results 24hrs Laboratory Tests Test 10/16/18 05:38 White Blood Count 6.7 Red Blood Count 4.53 Hemoglobin 11.8 L Hematocrit 37.7 Mean Corpuscular Volume 83.2 Mean Corpuscular Hemoglobin 26.0 L Mean Corpuscular Hemoglobin Concent 31.3 L Red Cell Distribution Width 13.2 Platelet Count 366 Mean Platelet Volume 10.6 H Immature Granulocytes % 0.600 H Neutrophils % 61.6 Lymphocytes % 25.7 Monocytes % 10.0 Eosinophils % 1.2 Basophils % 0.9 Nucleated Red Blood Cells % 0.0 Immature Granulocytes # 0.040 H Neutrophils # 4.2 Lymphocytes # 1.7 Monocytes # 0.7 Eosinophils # 0.1 Basophils # 0.1 Nucleated Red Blood Cells # 0.0 Sodium Level 140 Potassium Level 4.9 Chloride Level 101 Carbon Dioxide Level 34 H Anion Gap 5 Blood Urea Nitrogen 17 Creatinine 0.63 Est Glomerular Filtrat Rate mL/min > 60 Glucose Level 88 Calcium Level 9.4 Imaging Imaging RUQ venous doppler 10/12/2018: No evidence of a deep vein thrombosis involving the right upper extremity. BLE venous doppler 10/11/2018: No sonographic evidence for deep venous throm bosis. CXR 10/10/2018: Decreased lung volumes. Mild opacities at bilateral lung bases may represent atelectasis although aspiration or pneumonia could appear similar. Left Knee x-ray 10/10/2018: Intraoperative imaging of the left knee. 2D Echo 10/10/2018: Normal left ventricular cavity size. Normal left ventricular wall thickness. Mild left ventricular systolic dysfunction. Ejection fraction is visually estimated at 45-50 %. Tissue Doppler/Mitral Doppler indices are most likely consistent with impaired relaxation (Stage I diastolic dysfunction), patient mild tachy rate. These segments of the LV are hypokinetic inferior base segment and inferoseptum mid segment. Normal appearance of the mitral valve. Mild mitral valve regurgitation. Normal appearance and function of the tricuspid valve with trace physiologic regurgitation. Normal right ventricular systolic pressure. Normal pulmonic valve appearance. There is trace pulmonic regurgitation. Medications Medication Current Medications Ondansetron HCl (Zofran Inj) 4 mg Q4H PRN IV NAUSEA AND/OR VOMITING Last administered on 10/10/18 16:16; Admin Dose 4 MG; Start 10/10/18 at 16:00 Metoclopramide HCl (Reglan) 10 mg Q6H PRN IV VOMITTING; Start 10/10/18 at 17:00 Hydralazine HCl (Apresoline) 20 mg Q4H PRN IV high blood pressure Last administered on 10/10/18 17:48; Admin Dose 20 MG; Start 10/10/18 at 18:00 Aspirin (Ecotrin) 325 mg DAILY PO Last administered on 10/16/18 09:39; Admin Dose 325 MG; Start 10/11/18 at 09:00 Carvedilol (Coreg) 6.25 mg BID PO Last administered on 10/16/18 09:38; Admin Dose 6.25 MG; Start 10/11/18 at 21:00 Docusate Sodium (Colace) 200 mg BID PO Last administered on 10/16/18 09:37; Admin Dose 200 MG; Start 10/11/18 at 16:00 Al Hydrox/Mg Hydrox/Simethicone (Mag-Al Plus) 30 ml Q6H PRN PO GASTROINTESTINAL UPSET Last administered on 10/15/18 20:17; Admin Dose 30 ML; Start 10/11/18 at 16:30 Bisacodyl (Dulcolax) 10 mg DAILY PRN PO CONSTIPATION Last administered on 10/11/18 17:41; Admin Dose 10 MG; Start 10/11/18 at 16:30 Pantoprazole (Protonix Tab) 40 mg DAILY@06 PO Last administered on 10/16/18 05:26; Admin Dose 40 MG; Start 10/12/18 at 06:00 Enoxaparin Sodium (Lovenox) 40 mg QAM SC Last administered on 10/16/18at 09:50; Admin Dose 40 MG; Start 10/12/18 at 11:00 KAREN DHALIWAL NP Oct 16, 2018 14:32
--- NOTE | 2018-10-16 16:20 | PN ---
Date/Time of Note Date/Time of Note DATE: 10/16/18 TIME: 16:17 Assessment/Plan VTE Prophylaxis Risk score (from Ns)>0 risk: 3 SCD applied (from Ns): Yes Pharmacological prophylaxis: LMWH Lines/Catheters IV Catheter Type (from Nrsg): Saline Lock Urinary Cath still in place: No Assessment/Plan Hospital Course Patient was taken to stress test today, patient had shortness of breath and palpitation during the stress, continue telemetry monitoring, we will follow-up on the results. If patient remains free of chest pain is stable patient can be discharged home after cardiology clearance. Assessment/Plan - Elevated troponin and post-op tachycardia. Troponin is trended down, patient denies any chest pain. Pt declined the cardiac stress test. Dr Ashraf is fol hanna in cardiology consultation. - Stage I diastolic and mild mild systolic dysfunction with ejection fraction of 45% per 2D echo. - S/p hardware removal from L knee on 10/10/[address] Hatfield - Hx Fx of L patella s/p repair - Sepsis, probably due to phlebitis of R wrist on which Pt had an IV catheter before vs. SIRS from the hardware removal. Continue abx per ID. Dr Murdock is following in ID consultation. - HTN Further recommendations will depend on clinical course. Plan of care discussed with Dr. Everett. Result Diagram: 10/16/18 0538 10/16/18 0538 Results 24hrs Laboratory Tests Test 10/16/18 05:38 White Blood Count 6.7 Red Blood Count 4.53 Hemoglobin 11.8 L Hematocrit 37.7 Mean Corpuscular Volume 83.2 Mean Corpuscular Hemoglobin 26.0 L Mean Corpuscular Hemoglobin Concent 31.3 L Red Cell Distribution Width 13.2 Platelet Count 366 Mean Platelet Volume 10.6 H Immature Granulocytes % 0.600 H Neutrophils % 61.6 Lymphocytes % 25.7 Monocytes % 10.0 Eosinophils % 1.2 Basophils % 0.9 Nucleated Red Blood Cells % 0.0 Immature Granulocytes # 0.040 H Neutrophils # 4.2 Lymphocytes # 1.7 Monocytes # 0.7 Eosinophils # 0.1 Basophils # 0.1 Nucleated Red Blood Cells # 0.0 Sodium Level 140 Potassium Level 4.9 Chloride Level 101 Carbon Dioxide Level 34 H Anion Gap 5 Blood Urea Nitrogen 17 Creatinine 0.63 Est Glomerular Filtrat Rate mL/min > 60 Glucose Level 88 Calcium Level 9.4 Exam/Review of Systems Exam Vitals Vital Signs Date Temp Pulse Resp B/P (MAP) Pulse Ox O2 O2 Flow FiO2 Time Delivery Rate 10/16/18 98.1 89 18 129/60 100 15:20 (83) 10/13/18 Room Air 15:32 Intake and Output 10/15/18 10/15/18 10/16/18 1515:00 23:00 07:00 IntakeIntake Total 900 ml 610 ml BalanceBalance 900 ml 610 ml Exam Constitutional: alert, oriented Respiratory: clear to auscultation Cardiovascular: regular rate and rhythm Gastrointestinal: soft, non-tender Musculoskeletal: nl extremities to inspection Extremities: normal pulses, other (s/p left knee surgery) Neurological: nl mental status Skin: nl turgor Results Results 24hrs Laboratory Tests Test 10/16/18 05:38 White Blood Count 6.7 Red Blood Count 4.53 Hemoglobin 11.8 L Hematocrit 37.7 Mean Corpuscular Volume 83.2 Mean Corpuscular Hemoglobin 26.0 L Mean Corpuscular Hemoglobin Concent 31.3 L Red Cell Distribution Width 13.2 Platelet Count 366 Mean Platelet Volume 10.6 H Immature Granulocytes % 0.600 H Neutrophils % 61.6 Lymphocytes % 25.7 Monocytes % 10.0 Eosinophils % 1.2 Basophils % 0.9 Nucleated Red Blood Cells % 0.0 Immature Granulocytes # 0.040 H Neutrophils # 4.2 Lymphocytes # 1.7 Monocytes # 0.7 Eosinophils # 0.1 Basophils # 0.1 Nucleated Red Blood Cells # 0.0 Sodium Level 140 Potassium Level 4.9 Chloride Level 101 Carbon Dioxide Level 34 H Anion Gap 5 Blood Urea Nitrogen 17 Creatinine 0.63 Est Glomerular Filtrat Rate mL/min > 60 Glucose Level 88 Calcium Level 9.4 Medications Medication Current Medications Ondansetron HCl (Zofran Inj) 4 mg Q4H PRN IV NAUSEA AND/OR VOMITING Last administered on 10/10/18at 16:16; Admin Dose 4 MG; Start 10/10/18 at 16:00 Metoclopramide HCl (Reglan) 10 mg Q6H PRN IV VOMITTING; Start 10/10/18 at 17:00 Hydralazine HCl (Apresoline) 20 mg Q4H PRN IV high blood pressure Last a dministered on 10/10/18 17:48; Admin Dose 20 MG; Start 10/10/18 at 18:00 Aspirin (Ecotrin) 325 mg DAILY PO Last administered on 10/16/18 09:39; Admin Dose 325 MG; Start 10/11/18 at 09:00 Carvedilol (Coreg) 6.25 mg BID PO Last administered on 10/16/18 09:38; Admin Dose 6.25 MG; Start 10/11/18 at 21:00 Docusate Sodium (Colace) 200 mg BID PO Last administered on 10/16/18 09:37; Admin Dose 200 MG; Start 10/11/18 at 16:00 Al Hydrox/Mg Hydrox/Simethicone (Mag-Al Plus) 30 ml Q6H PRN PO GASTROINTESTINAL UPSET Last administered on 10/15/18 20:17; Admin Dose 30 ML; Start 10/11/18 at 16:30 Bisacodyl (Dulcolax) 10 mg DAILY PRN PO CONSTIPATION Last administered on 10/11/18 17:41; Admin Dose 10 MG; Start 10/11/18 at 16:30 Pantoprazole (Protonix Tab) 40 mg DAILY@06 PO Last administered on 10/16/18 05:26; Admin Dose 40 MG; Start 10/12/18 at 06:00 Enoxaparin Sodium (Lovenox) 40 mg QAM SC Last administered on 10/16/18 09:50; Admin Dose 40 MG; Start 10/12/18 at 11:00 LOLY WRIGHT Oct 16, 2018 16:20
[2018-10-17] VITALS (9 sets, daily range): BP systolic 112–135; BP diastolic 56–64; PULSE 71–86; RESP 18–22
[2018-10-17] MEDS: PANTOPRAZOLE (EC) 40 MG TAB PO SCH (05:37)
[2018-10-17] MEDS: DOCUSATE SODIUM 100 MG CAP PO SCH (08:43)
[2018-10-17] MEDS: ASPIRIN (EC) 325 MG TAB PO SCH (08:43)
[2018-10-17] MEDS: ENOXAPARIN 40 MG/0.4 ML SYG SC SCH (08:55)
--- NOTE | 2018-10-17 11:34 | PN ---
Date/Time of Note Date/Time of Note DATE: 10/17/18 TIME: 11:34 Assessment/Plan VTE Prophylaxis Risk score (from Nsg)>0 risk: 3 SCD applied (from Nsg): Yes Lines/Catheters IV Catheter Type (from Nrsg): Saline Lock Urinary Cath still in place: No Assessment/Plan Assessment/Plan - Elevated troponin and post-op tachycardia. Troponin is trended down, patient denies any chest pain. Pt declined the cardiac stress test. Dr Ashraf is following in cardiology consultation. - Stage I diastolic and mild mild systolic dysfunction with ejection fraction of 45% per 2D echo. - S/p hardware removal from L knee on 10/10/[address] Hatfield - Hx Fx of L patella s/p repair - Sepsis, probably due to phlebitis of R wrist on which Pt had an IV catheter before vs. SIRS from the hardware removal. Continue abx per ID. Dr Murdock is following in ID consultation. - HTN Further recommendations will depend on clinical course. Plan of care discussed with Dr. Everett. Result Diagram: 10/16/1853710/16/18537 Exam/Review of Systems Exam Vitals Vital Signs Date Temp Pulse Resp B/P (MAP) Pulse Ox O2 O2 Flow FiO2 Time Delivery Rate 10/17/18 97.9 80 22 113/56 100 Room Air 11:26 (75) Intake and Output 10/16/18 10/16/18 10/17/18 1515:00 23:00 07:00 IntakeIntake Total 900 ml 480 ml BalanceBalance 900 ml 480 ml Medications Medication Current Medications Ondansetron HCl (Zofran Inj) 4 mg Q4H PRN IV NAUSEA AND/OR VOMITING Last administered on 10/10/18at 16:16; Admin Dose 4 MG; Start 10/10/18 at 16:00 Metoclopramide HCl (Reglan) 10 mg Q6H PRN IV VOMITTING; Start 10/10/18 at 17:00 Hydralazine HCl (Apresoline) 20 mg Q4H PRN IV high blood pressure Last administered on 10/10/18at 17:48; Admin Dose 20 MG; Start 10/10/18 at 18:00 Aspirin (Ecotrin) 325 mg DAILY PO Last administered on 10/17/18at 08:43; Admin Dose 325 MG; Start 10/11/18 at 09:00 Carvedilol (Coreg) 6.25 mg BID PO Last administered on 10/17/18 08:44; Admin Dose 6.25 MG; Start 10/11/18 at 21:00 Docusate Sodium (Colace) 200 mg BID PO Last administered on 10/17/18 08:43; Admin Dose 200 MG; Start 10/11/18 at 16:00 Al Hydrox/Mg Hydrox/Simethicone (Mag-Al Plus) 30 ml Q6H PRN PO GASTROINTESTINAL UPSET Last administered on 10/15/18 20:17; Admin Dose 30 ML; Start 10/11/18 at 16:30 Bisacodyl (Dulcolax) 10 mg DAILY PRN PO CONSTIPATION Last administered on 10/11/18 17:41; Admin Dose 10 MG; Start 10/11/18 at 16:30 Pantoprazole (Protonix Tab) 40 mg DAILY@06 PO Last administered on 10/17/18 05:37; Admin Dose 40 MG; Start 10/12/18 at 06:00 Enoxaparin Sodium (Lovenox) 40 mg QAM SC Last administered on 10/17/18 08:55; Admin Dose 40 MG; Start 10/12/18 at 11:00 SHMUEL MORAN Oct 17, 2018 11:34
--- NOTE | 2018-10-17 12:11 | CONS ---
Assessment/Plan Assessment/Plan Hospital Course (Demo Recall) IMP: 1.Positive Troponin-Now trended negative. NO CP/SOB. s/p lexiscan with EF 51% and no ischemia 2.HTN 3.Etnfqagnysw-anph-rt now improved 4.Post-op s/p knee surgery 5. Cardiomyopathy-EF 45-50 by echo REcc: -Tele -Contineu coreg -Contineu asa -Contineu abx's and f/u cx data -OK for d/c planning from cardiac standpoint Consultation Date/Type/Reason Admit Date/Time Oct 10, 2018 at 13:06 Initial Consult Date 10/11/18 Type of Consult Cardiology Reason for Consultation Positive troponin Requesting Provider: MEDINA NICOLE MD Date/Time of Note DATE: 10/17/18 TIME: 12:09 Exam/Review of Systems Vital Signs Vitals Vital Signs Date Temp Pulse Resp B/P (MAP) Pulse Ox O2 O2 Flow FiO2 Time Delivery Rate 10/17/18 97.9 80 22 113/56 100 Room Air 11:26 (75) Intake and Output 10/16/18 10/16/18 10/17/18 1515:00 23:00 07:00 IntakeIntake Total 900 ml 480 ml BalanceBalance 900 ml 480 ml Exam Exam Review of Systems: CONSTITUTIONAL: No fevers, chills. PULMONARY: No sob CARDIOVASCULAR: No chest pain/palpitations GASTROINTESTINAL: No nausea/vomiting. GENITOURINARY: No hematuria/dysuria. MUSCULOSKELETAL: No myagias/arthalgias. PSYCHIATRIC: The patient denies depression. NEUROLOGIC: No weakness Constitutional: alert, oriented Psych: no complaints Head: normocephalic ENMT: mucosa pink and moist Neck: supple, jvd (9 cm water) Respiratory: clear to auscultation Cardiovascular: regular rate and rhythm Gastrointestinal: soft, non-tender Musculoskeletal: muscle tone (normal) Extremities: edema (none) Neurological: other (No focal deficits) Labs Result Diagram: 10/16/1853710/16/18537 Medications Medications Current Medications Ondansetron HCl (Zofran Inj) 4 mg Q4H PRN IV NAUSEA AND/OR VOMITING Last administered on 10/10/18at 16:16; Admin Dose 4 MG; Start 10/10/18 at 16:00 Metoclopramide HCl (Reglan) 10 mg Q6H PRN IV VOMITTING; Start 10/10/18 at 17:00 Hydralazine HCl (Apresoline) 20 mg Q4H PRN IV high blood pressure Last administered on 10/10/18 17:48; Admin Dose 20 MG; Start 10/10/18 at 18:00 Aspirin (Ecotrin) 325 mg DAILY PO Last administered on 10/17/18 08:43; Admin Dose 325 MG; Start 10/11/18 at 09:00 Carvedilol (Coreg) 6.25 mg BID PO Last administered on 10/17/18 08:44; Admin Dose 6.25 MG; Start 10/11/18 at 21:00 Docusate Sodium (Colace) 200 mg BID PO Last administered on 10/17/18 08:43; Admin Dose 200 MG; Start 10/11/18 at 16:00 Al Hydrox/Mg Hydrox/Simethicone (Mag-Al Plus) 30 ml Q6H PRN PO GASTROINTESTINAL UPSET Last administered on 10/15/18 20:17; Admin Dose 30 ML; Start 10/11/18 at 16:30 Bisacodyl (Dulcolax) 10 mg DAILY PRN PO CONSTIPATION Last administered on 10/11/18 17:41; Admin Dose 10 MG; Start 10/11/18 at 16:30 Pantoprazole (Protonix Tab) 40 mg DAILY@06 PO Last administered on 10/17/18 05:37; Admin Dose 40 MG; Start 10/12/18 at 06:00 Enoxaparin Sodium (Lovenox) 40 mg QAM SC Last administered on 10/17/18 08:55; Admin Dose 40 MG; Start 10/12/18 at 11:00 BRENDA MARINELLI Oct 17, 2018 12:11
--- NOTE | 2018-10-17 14:30 | CONS ---
[facility] Leisa [facility] Unit Number: [id number] Date of : 1955 Patient Status: Admitted Inpatient Attending Doctor: Medina Nicole MD Edit: MAYUR MURDOCK M.D. on 10/18/18 @ 22:13 Mathieu: I discussed the management with GEOSPATIAL SYSTEMS INTEGRATOR Surya and agree Assessment/Plan Assessment/Plan Hospital Course (Demo Recall) - S/p sepsis, probably due to phlebitis of R wrist on which Pt had an IV c atheter before vs. SIRS from the hardware removal - Leukocytosis and tachycardia resolved - Phlebitis of R wrist on which Pt had an IV catheter before (it was removed), resolved. Doppler CARLEE of RUE was negative for phlebitis or DVT - S/p hardware removal from L knee on 10/10/2018 - H/o Fx of L patella s/p repair - S/p post-op nausea and emesis, probable manifestation of sepsis; resolved - Post-op tachycardia and mildly elevated troponin levels, probably secondary to sepsis - resolved - S/p Lexiscan stress test 10/16/2018 with no e/o stress-induced ischemia, no wall motion abnormalities and EF 51% at stress - Hypertension Recommendations: - Continue to monitor off antibiotics - Continue local wound care of L knee - Okay for DC home from ID standpoint Management d/w patient, GAEL Phelan, and with Dr. Murdock Consultation Date/Type/Reason Admit Date/Time Oct 10, 2018 at 13:06 Initial Consult Date 10/11/18 Type of Consult Infectious Disease Requesting Provider: MEDINA NICOLE MD Date/Time of Note DATE: 10/17/18 TIME: 14:30 24 HR Interval Summary Free Text/Dictation Anxious to go home. L knee dressing recently changed. Reports very mild L knee pain. No problems ambulating. No fever, chills, CP, SOB, abd pain, n/v/d, dysuria. L knee with no signs of infection and no acute issues per d/w nursing. Exam/Review of Systems Exam Vitals Vital Signs Date Temp Pulse Resp B/P (MAP) Pulse Ox O2 O2 Flow FiO2 Time Delivery Rate 10/17/18 71 12:11 10/17/18 97.9 22 113/56 100 Room Air 11:26 (75) Intake and Output 10/16/18 10/16/18 10/17/18 1515:00 23:00 07:00 IntakeIntake Total 900 ml 480 ml BalanceBalance 900 ml 480 ml Exam Constitutional: alert, oriented, well developed, other (petite, sitting in chair in no acute distress) Psych: no complaints, nl mood/affect Head: normocephalic, atraumatic Eyes: nl conjunctiva, nl lids, nl sclera ENMT: nl external ears & nose, nl lips & teeth, nl nasal mucosa & septum, mucosa pink and moist (no thrush), other ([place]) Neck: supple, non-tender Respiratory: clear to auscultation, normal air movement Cardiovascular: regular rate and rhythm, nl pulses, other (stable on room air) Gastrointestinal: soft, non-tender, bowel sounds (normoactive) Musculoskeletal: nl extremities to inspection, nl gait and stance, other (L knee wrapped with Kerlix c/d/i with no surrounding TTP) Extremities: normal pulses; No edema Neurological: nl mental status, nl speech, nl strength Skin: nl turgor; No rash or lesions Results Result Diagram: 10/16/18 0538 10/16/18 0538 [facility] myocardial perfusion study 10/16/2018: IMPRESSION: 1. No evidence of stress-induced ischemia. 2. No wall motion abnormalities. 3. The left ventricle ejection fraction at stress is 51%. Medications Medication Current Medications Ondansetron HCl (Zofran Inj) 4 mg Q4H PRN IV NAUSEA AND/OR VOMITING Last administered on 10/10/18at 16:16; Admin Dose 4 MG; Start 10/10/18 at 16:00 Metoclopramide HCl (Reglan) 10 mg Q6H PRN IV VOMITTING; Start 10/10/18 at 17:00 Hydralazine HCl (Apresoline) 20 mg Q4H PRN IV high blood pressure Last administered on 10/10/18 17:48; Admin Dose 20 MG; Start 10/10/18 at 18:00 Aspirin (Ecotrin) 325 mg DAILY PO Last administered on 10/17/18 08:43; Admin Dose 325 MG; Start 10/11/18 at 09:00 Carvedilol (Coreg) 6.25 mg BID PO Last administered on 10/17/18 08:44; Admin Dose 6.25 MG; Start 10/11/18 at 21:00 Docusate Sodium (Colace) 200 mg BID PO Last administered on 10/17/18 08:43; Admin Dose 200 MG; Start 10/11/18 at 16:00 Al Hydrox/Mg Hydrox/Simethicone (Mag-Al Plus) 30 ml Q6H PRN PO GASTROINTESTINAL UPSET Last administered on 10/15/18 20:17; Admin Dose 30 ML; Start 10/11/18 at 16:30 Bisacodyl (Dulcolax) 10 mg DAILY PRN PO CONSTIPATION Last administered on 10/11/18 17:41; Admin Dose 10 MG; Start 10/11/18 at 16:30 Pantoprazole (Protonix Tab) 40 mg DAILY@06 PO Last administered on 10/17/18 05:37; Admin Dose 40 MG; Start 10/12/18 at 06:00 Enoxaparin Sodium (Lovenox) 40 mg QAM SC Last administered on 10/17/18 08:55; Admin Dose 40 MG; Start 10/12/18 at 11:00 KAREN DHALIWAL NP Oct 17, 2018 14:30
--- NOTE | 2018-10-17 15:40 | DS ---
Date/Time of Note Date/Time of Note DATE: 10/17/18 TIME: 15:40 Discharge Summary Admission/Discharge Info Admit Date/Time Oct 10, 2018 at 13:06 Discharge Date/Time Home Meds Active Scripts Pantoprazole* (Pantoprazole*) 40 Mg Tablet., 40 MG PO DAILY@06 for 30 Days Prov:LOLY WRIGHT 10/15/18 Carvedilol* (Carvedilol*) 6.25 Mg Tablet, 6.25 MG PO BID for 30 Days, TAB Prov:LOLY WRIGHT 10/15/18 Aspirin (Aspir-Gin) 325 Mg Tablet., 325 MG PO DAILY for 30 Days Prov:LOLY WRIGHT 10/15/18 Acetaminophen* (Tylenol*) 325 Mg Tablet, 2 TAB PO Q6 PRN for PAIN AND OR ELEVATED TEMP, #30 TAB Prov:PAM LU PA-C 01/02/17 Reported Medications Atorvastatin Calcium (Atorvastatin Calcium) 20 Mg Tablet, 20 MG PO QHS, #30 TAB 11/21/16 [Alendronate Sodium] No Conflict Check, 70 MG PO 11/21/16 Discontinued Reported Medications [Calcium] No Conflict Check, 400 MG PO 11/21/16 Enalapril Maleate* (Enalapril Maleate*) 20 Mg Tablet, 20 MG PO DAILY, TAB 11/21/16 Hydrochlorothiazide* (Hydrochlorothiazide*) 12.5 Mg Tablet, 12.5 MG PO DAILY, #30 TAB 11/21/16 [Acetaminophen] No Conflict Check, 500 MG 11/21/16 [Omeprazole] No Conflict Check 11/21/16 Primary Care Provider [facility] SHMUEL MORAN Oct 17, 2018 15:40
== END 2018-10-17 18:50 | disposition home or self-care (01) | DRG 495 ==
LOC: SDS 06:57 → REC 13:06 → 6WM 14:45
PROVIDERS: ADMIT Specialist; ATTEND Internal Medicine
PROC: 0QPF04Z Removal of Internal Fixation Device from Left Patella, Open Approach (ICD-10-PCS; principal; 2018-10-10 08:00)
DX: T84.023A Instability of internal left knee prosthesis, initial encounter (principal); A41.9 Sepsis, unspecified organism; I42.9 Cardiomyopathy, unspecified; T80.1XXA Vascular complications following infusion, transfusion and therapeutic injection, initial encounter; I10 Essential (primary) hypertension; R00.0 Tachycardia, unspecified; D64.9 Anemia, unspecified; I80.9 Phlebitis and thrombophlebitis of unspecified site; R79.89 Other specified abnormal findings of blood chemistry; I80.8 Phlebitis and thrombophlebitis of other sites
CPT/HCPCS: 71045; 73562; 78452; 80048; 80053; 80061; 81003; 82270; 82550; 82553; 82962; 83605; 84439; 84443; 84484; 85025; 85378; 86850; 86900; 86901; 87040; 87086; 88300; 93005; 93017; 93306; 93970; 93971; 97161; A9500; A9505; C9113; J0360; J0690; J0696; J1100; J1170; J1650; J2405; J2785; J2795; J3010; J3370; J3480; J7030; Q9967